=== PATIENT | male | born 1985 | race Hispanic/Latino ===

== ENCOUNTER 2018-08-13 17:47 | Inpatient (IN) | payer MEDICARE, MEDICAID ==
[2018-08-13] MEDS ORDERED: Dextrose 5 % And 0.9 % NaCl 1,000 ML IV SCH (20:15)
[2018-08-13] MEDS ORDERED: Acetaminophen 325 MG TAB PO PRN (21:08)
[2018-08-13] MEDS ORDERED: Sodium Chloride 0.9% 1,000 ML IV SCH (21:15)
[2018-08-13 21:29] VITALS: BMI 16.7
[2018-08-14] MEDS ORDERED: Acetaminophen 650 MG Suppository PR PRN (00:30)
[2018-08-14] MEDS ORDERED: Benzonatate 100 MG CAP PO PRN (00:30)
[2018-08-14] MEDS ORDERED: Ondansetron PF 4 MG/2 ML Vial IVP PRN ×2 (00:30)
[2018-08-14] MEDS ORDERED: Senokot S 8.6-50 MG TAB PO PRN (00:30)
[2018-08-14] MEDS ORDERED: Bisacodyl 10 MG SUPP PR PRN (00:30)
[2018-08-14] MEDS ORDERED: cloNIDine 0.1 MG TAB PO PRN (00:30)
[2018-08-14] MEDS ORDERED: cefTRIAXone\\ROCEPHIN 1 GM in Sodium Chloride 0.9% 100 ML IVPB SCH ×2 (00:30→15:00)
[2018-08-14] MEDS ORDERED: Calcium Carbonate 500 MG ChewTAB PO PRN (00:30)
[2018-08-14] MEDS ORDERED: Bisacodyl 5 MG TAB PO PRN (00:30)
[2018-08-14] MEDS ORDERED: Sodium Chloride 0.9% 1,000 ML IV SCH (00:30)
[2018-08-14] MEDS ORDERED: hydrALAZINE 20 MG/ML VIAL SLOW IVP PRN (00:30)
[2018-08-14] MEDS ORDERED: Nitroglycerin 0.4 MG TAB (25 Tab Bottle) SL PRN (00:30)
[2018-08-14] MEDS ORDERED: Sodium Chloride 0.65% Nasal 44 ML BOT EA NARE PRN (00:30)
[2018-08-14] MEDS ORDERED: Diabetic Tussin 200 MG/10 ML UDCUP PO PRN (00:30)
[2018-08-14] MEDS ORDERED: Melatonin 3 MG TAB PO PRN (01:15)
[2018-08-14] MEDS ORDERED: Polyethylene Glycol 3350 17 GM Packet PO PRN (02:08)
[2018-08-14] MEDS: Sodium Chloride 0.9% 1,000 ML IV SCH ×3 (02:35→21:51)
[2018-08-14] MEDS: Acetaminophen 325 MG TAB PO PRN ×2 (03:31→14:57)
[2018-08-14 03:32] LABS: Anion Gap 15 mmol/L (10-20); BUN (Urea Nitrogen) 10 mg/dL (8.9-20.6); Calc. Creatinine Clearance 86 mL/min (70-130); Carbon Dioxide 20 mmol/L (22-29); Chloride 111 mmol/L (98-107); Estimated GFR-MDRD Greater than 90; Glucose 138 mg/dL (70-105); Potassium 3.6 mmol/L (3.5-5.1); Sodium 142 mmol/L (136-145)
[2018-08-14 03:33] LABS: Band 22 % (5-11); Hemoglobin 13.6 g/dL (14.0-18.0); Lymphocytes 5 % (21-51); MDiff Complete? YES; Mean Corpuscular HGB CONC 34.7 g/dL (32.0-36.0); Mean Corpuscular Hemoglobin 31.3 pg (27.0-31.0); Mean Corpuscular Volume 90.3 fL (78.0-98.0); Metamyelocyte 2 % (0-0); Monocytes 3 % (0-10); Neutrophil 68 % (42-75); Platelet Count 129 thou/uL (130-400); Platelet Morphology Comment Appears Adequate; RBC Distribution Width 12.1 % (11.5-14.5); RBC Morphology Normal; Red Blood Cell (RBC) Count 4.34 mill/uL (4.70-6.10); White Blood Cell (WBC) Count 13.6 thou/uL (4.8-10.8)
--- NOTE | 2018-08-14 07:05 | HP ---
PRIMARY CARE PHYSICIAN: Ashlee Sharpe DO. CHIEF COMPLAINT: Fever, poor appetite, nausea, and vomiting. HISTORY OF PRESENTING ILLNESS: Mr. Whelan is a 32-year-old unfortunate male with history of cerebral palsy as well as seizure disorder, who presented to the outside emergency room with the above-mentioned complaints. History is mainly obtained by his sister present at bedside. The patient has advanced cerebral palsy and is nonverbal. According to the ER records and according to the sister, he has been having some constipation, nausea, and vomiting for the last couple of days. His care provider who is another sister who is not at the bedside at this time, noticed that he was having fever yesterday evening as well. He was also having poor appetite. The care provider gave him an enema yesterday morning, but his symptoms did not improve when she felt that he is not looking good and has been having some abdominal discomfort. She also noticed some chills. She brought him to the emergency room for these symptoms. Upon presentation to the ER in [place], he was afebrile with a temperature of 97.7, pulse of 88, saturating 97% on room air, and blood pressure 104/70. Later, his rectal temperature was checked and it was noticed to be 100.6. He was noticed to have urinary tract infection based on the urinalysis. The family reported that they recently had a urine check done, but they have not received the results back. He was treated with IV fluids and IV antibiotics and was transferred to our emergency room. In our emergency room, he was tachycardic with a heart rate of 133 and temperature of 99.1. He is now being admitted for further evaluation and care with a presumptive diagnosis of sepsis secondary to urinary tract infection. PAST MEDICAL HISTORY: 1. Cerebral palsy. 2. History of seizure disorder. 3. Chronic dysphagia, but the patient is able to tolerate oral feeds according to the family. 4. History of left flank mass. 5. History of testicular atrophy. 6. History of nephrolithiasis. PAST SURGICAL HISTORY: 1. RETAIL SALESPERSON shunt. 2. Right and left hip replacement. 3. RETAIL SALESPERSON shunt revision. PAST PSYCHIATRIC HISTORY: None. SOCIAL HISTORY: The patient is being cared for by his 3 sisters at home. No history of drug, alcohol, or tobacco abuse. FAMILY HISTORY: No known family history of any coronary artery disease or stroke. ALLERGIES: NO KNOWN MEDICATION ALLERGIES. HOME MEDICATIONS: As listed below. 1. Keppra 1000 mg p.o. b.i.d. 2. Benadryl p.r.n. 3. Depakote 250 mg p.o. b.i.d. 4. Zanaflex 4 mg p.o. b.i.d. 5. Sertraline 100 mg daily. 6. Magnesium citrate 200 mg p.o. b.i.d. 7. Nuedexta one capsule p.o. b.i.d. 8. Zonisamide 200 mg p.o. b.i.d. 9. Melatonin 10 mg p.o. at bedtime p.r.n. REVIEW OF SYSTEMS: It is unable to be obtained because the patient is nonverbal because of his cerebral palsy. Otherwise as per HPI, as told by his care provider at bedside. LABORATORY DATA: His CBC shows WBCs of 12.7, otherwise unremarkable. Serum chemistry showed bicarb of 19, creatinine 1.35 with a baseline of 0.8. Lactic acid elevated to 2.3. Liver enzymes unremarkable except for ALT slightly high at 110, AST of 47 with normal total bilirubin. Urinalysis shows some protein, leukocyte esterase, WBCs, RBCs, as well as bacteria. Chest x-ray as per my review shows no evidence to suggest infiltrate or effusions. PHYSICAL EXAMINATION: VITAL SIGNS: Most recent vital signs, temperature 100.1, heart rate anywhere from 108 to 123, respirations 20, saturating 99% on room air, blood pressure 112/77. GENERAL: No acute distress. He is awake and alert, but does not follow any commands, which is consistent with his history of cerebral palsy. HEENT: Mucous membrane is slightly dry. No oropharyngeal exudate or erythema. The exam is limited by noncooperation and contractures on the patient's part. Pupils are equal and reactive to light and accommodation. NECK: Supple without any lymphadenopathy, JVD, or bruit. CHEST: Clear to auscultation without any wheezing, rales, or rhonchi. HEART: Rate, rhythm; he is tachycardic with regular rhythm without any murmurs. ABDOMEN: Somewhat distended, but difficult to tell if he is tender to palpation or not. Bowel sounds are heard. No rebound or rigidity. EXTREMITIES: Shows extreme contractures in both upper extremities and poorly developed lower extremities. There is no edema. NEUROLOGICAL: The patient is nonverbal. He is awake and alert, and according to the family that is his baseline. He does not follow any commands for me. SKIN: Free of any rashes or bruises. No erythema or warmth. IMPRESSION AND PLAN: 1. Sepsis. This is secondary to urinary tract infection. The patient has fever, tachycardia, leukocytosis, and urinary tract infection. He will be treated with IV antibiotics. At this time until the cultures are back, we will treat him with broad-spectrum IV antibiotics to cover for the resistant organisms. We will use Rocephin as well as vancomycin. Pharmacy to dose and monitor vancomycin. Blood cultures and urine cultures have been obtained and we will follow the results. We will provide symptomatic and supportive care. The patient is somewhat tachycardic and if his tachycardia does not improve with IV fluid resuscitation, consider moving him to the telemetry bed. He is currently on the medical floor as accepted by the accepting physician. 2. Abdominal distention and constipation. We will obtain a KUB to rule out small-bowel obstruction. MiraLAX and bowel regimen have been started. P.r.n. antiemetics will be ordered. Currently, he appears comfortable and has no vomiting. 3. Acute renal insufficiency. This is likely secondary to poor p.o. intake and nausea and vomiting causing prerenal azotemia. He will be started on IV fluids and we will recheck labs in the morning. Avoid any nephrotoxic medications. 4. History of seizure disorder. We will restart his home medications of zonisamide, Keppra, as well as Depakote. Seizure precautions will be instituted. Aspiration precaution will be started as well. 5. Advanced cerebral palsy, spastic. Restart his home medications of Nuedexta and Zanaflex. 6. Deep venous thrombosis and gastrointestinal prophylaxis and p.r.n. medications. DISPOSITION: Mr. Whelan is currently being admitted to the hospital with urinary tract infection and sepsis. Estimated length of stay at this time is at least 2 to 3 midnights. Further management will depend upon his clinical course. Job ID: [id number]
[2018-08-14] MEDS: Enoxaparin Sodium 40 MG/0.4 ML SYRINGE SC SCH (09:25)
[2018-08-14] MEDS: tiZANidine HCl 4 MG TAB PO SCH ×2 (09:26→20:28)
[2018-08-14] MEDS: Magnesium Oxide 400 MG TAB PO SCH ×2 (09:26→20:28)
[2018-08-14] MEDS: Zonisamide 100 MG CAP PO SCH ×2 (09:26→20:28)
[2018-08-14] MEDS: Divalproex Sodium 250 MG (DR) TAB PO SCH ×2 (09:27→20:27)
[2018-08-14] MEDS: levETIRAcetam 500 MG TAB PO SCH ×2 (09:27→20:27)
[2018-08-14] MEDS: Famotidine 20 MG TAB PO SCH ×2 (09:28→20:27)
--- NOTE | 2018-08-14 09:56 | RAD ---
2 VIEW ABDOMEN SERIES: Date: 08/14/18 INDICATION: Small bowel obstruction, abdominal pain. FINDINGS: Partially imaged catheter tubing overlies the chest and abdomen. Lung bases, where visualized, are gr ossly clear. Bowel gas pattern is nonspecific, with a moderate degree of retained fecal material in t he colon. There is chronic osseous deformity of the pelvis, most notable at the left hip. The osseous structures are gracile. Presumed bilateral nephrolithiasis. IMPRESSION: 1. Nonspecific bowel gas pattern. 2. Partially visualized catheter tubing overlie the chest and abdomen. 3. Probable bilateral nephrolithiasis. 4. Chronic osseous deformities. POS: [facility]
[2018-08-14] MEDS: Dextromethorphan Hbr/Quinidine CAPSULE PO SCH ×2 (10:23→20:27)
[2018-08-14] MEDS ORDERED: Vancomycin HCl 750 MG in Sodium Chloride 0.9% 250 ML 250 ML IVPB SCH (12:00)
--- NOTE | 2018-08-14 13:06 | CT ---
ABDOMEN AND PELVIC CT SCAN WITHOUT CONTRAST: HISTORY: Abdominal pain. History of urolithiasis COMPARISON: February 2016 CT exam FINDINGS: Nonspecific bibasilar consolidation which could relate to pneumonitis or atelectasis. Correlate clini devan Liver: Unremarkable. Gallbladder: Moderate distention Pancreas: Unremarkable Spleen: Unremarkable. Adrenal glands: Unremarkable. Kidneys: Bilateral nephrolithiasis. No hydronephrosis. There is mild distention as well as wall thick ening of the unenhanced left ureter. Bowel: Incomplete evaluation without enteric or IV contrast. There are catheters which traverse the a bdomen and pelvis Urinary Bladder: Wall thickening of the mildly distended urinary bladder Adenopathy: No adenopathy within the abdomen or pelvis. Free Air: No free air. Ascites: Scattered mild ascites is present. There is persistent density of the right inguinal canal which again may relate to an undescended test is. Correlate with physical exam. Osseous structures: Chronic osseous deformities most notable at the left hip where there is a chronic dislocation with prominent osseous irregularity of the left hip joint. IMPRESSION: 1. Bilateral nephrolithiasis. 2. Wall thickening of the urinary bladder and left ureter. Slight prominence of caliber of left uret er which may relate to reflux with ascending urinary tract infection. Correlate with laboratory values 3. Probable undescended right testis. Correlate with physical exam. 4. Bibasilar densities that may reflect pneumonitis in the correct clinical context. Continued imagi ng follow-up is recommended. Transcribed Date/Time: 08/14/2018 1:37 PM
[2018-08-14] MEDS: MEROPENEM 1 GM/50 ML 1 GM in Premix Bag 1 BAG IVPB SCH ×2 (13:46→21:50)
--- NOTE | 2018-08-14 14:33 | PDOC.PN ---
- Subjective Encounter Start Date: 08/14/18 Encounter Start Time: 09:15 Subjective: pt up in bed no complains - Objective Vital Signs & Weight: Vital Signs (12 hours) Temp Pulse Resp BP Pulse Ox 08/14/18 11:00 100.9 F H 98 16 99/71 93 L 08/14/18 09:02 100 08/14/18 07:17 98.7 F 128 H 20 114/79 100 08/14/18 06:36 98.5 F 105 H 18 08/14/18 04:00 100.3 F H 120 H 20 100/65 94 L 08/14/18 03:25 101.2 F H Weight Admit Weight 97 lb 11.2 oz Weight 97 lb 11.2 oz Result Diagrams: 08/14/18 02:52 08/14/18 02:52 Phys Exam - Physical Examination Neck: no nodes, no JVD, supple, full ROM Respiratory: no wheezing, no rales, no rhonchi, wheezing present, clear to auscultation bilateral Cardiovascular: RRR, no significant murmur, no rub, gallop, irregular Gastrointestinal: soft, non-tender, no distention, positive bowel sounds Dx/Plan (1) Sepsis Code(s): A41.9 - SEPSIS, UNSPECIFIED ORGANISM Status: Acute (2) UTI (urinary tract infection) Status: Acute (3) Bacteremia Code(s): R78.81 - BACTEREMIA Status: Acute - Plan will change abx, consult id -: continue iv fluids, will start pt on regular diet * . Review of Systems - Review of Systems Other: unable to obtain - Medications/Allergies Allergies/Adverse Reactions: Allergies Allergy/AdvReac Type Severity Reaction Status Date / Time No Known Allergies Allergy Unverified 08/13/18 20:14 Medications: Current Medications Acetaminophen (Tylenol) 650 mg PO Q4H PRN PRN Reason: Headache/Fever/Mild Pain (1-3) Last Admin: 08/14/18 03:31 Dose: 650 mg Acetaminophen (Tylenol) 650 mg [place] Q4H PRN PRN Reason: Headache/Fever/Mild Pain (1-3) Benzonatate (Tessalon) 100 mg PO Q6H PRN PRN Reason: Cough Bisacodyl (Dulcolax) 10 mg PO DAILYPRN PRN PRN Reason: Constipation Bisacodyl (Dulcolax) 10 mg [place] DAILYPRN PRN PRN Reason: Constipation Calcium Carbonate (Tums) 1,000 mg PO Q4H PRN PRN Reason: Heartburn or Indigestion Clonidine (Catapres) 0.1 mg PO Q4H PRN PRN Reason: SBP > 160____ Dextromethorphan/Quinidine (Nuedexta 20-10 Mg Capsule) 1 cap PO Q12HR [facility] Last Admin: 08/14/18 10:23 Dose: 1 cap Divalproex Sodium (Depakote) 250 mg PO BID [facility] Last Admin: 08/14/18 09:27 Dose: 250 mg Enoxaparin Sodium (Lovenox) 40 mg SC 0900 [facility] Last Admin: 08/14/18 09:25 Dose: 40 mg Famotidine (Pepcid) 20 mg PO BID [facility] Last Admin: 08/14/18 09:28 Dose: 20 mg Guaifenesin (Robitussin Sf) 200 mg PO Q4H PRN PRN Reason: Cough Hydralazine HCl (Apresoline) 10 mg SLOW IVP Q4H PRN PRN Reason: SBP > 180 and HR < 70 Sodium Chloride (Normal Saline 0.9%) 1,000 mls @ 100 mls/hr IV .Q10H [facility] Last Admin: 08/14/18 10:25 Dose: 1,000 mls Meropenem 1 gm/ Device 50 mls @ 100 mls/hr IVPB Q8HR [facility] Last Admin: 08/14/18 13:46 Dose: 50 mls Levetiracetam (Keppra) 1,000 mg PO BID [facility] Last Admin: 08/14/18 09:27 Dose: 1,000 mg Magnesium Oxide (Magnesium Oxide) 200 mg PO BID [facility] Last Admin: 08/14/18 09:26 Dose: 200 mg Melatonin (Melatonin) 9 mg PO HS PRN PRN Reason: Insomnia Nitroglycerin (Nitrostat) 0.4 mg SL Q5MIN PRN PRN Reason: Chest Pain Ondansetron HCl (Zofran) 4 mg IVP Q6H PRN PRN Reason: Nausea/Vomiting Polyethylene Glycol (Miralax) 17 gm PO DAILYPRN PRN PRN Reason: Constipation Senna/Docusate Sodium (Senokot S) 2 tab PO BID PRN PRN Reason: Constipation Sertraline HCl (Zoloft) 100 mg PO DAILY [facility] Last Admin: 08/14/18 09:25 Dose: 100 mg Sodium Chloride ([place] Nasal [place] 0.65%) 0 ml EA NARE QIDPRN PRN PRN Reason: Nasal Congestion Sodium Chloride (Flush - Normal Saline) 10 ml IVF Q12HR [facility] Last Admin: 08/14/18 09:28 Dose: 10 ml Sodium Chloride (Flush - Normal Saline) 10 ml IVF PRN PRN PRN Reason: Saline Flush Tizanidine HCl (Zanaflex) 4 mg PO BID [facility] Last Admin: 08/14/18 09:26 Dose: 4 mg Zonisamide (Zonisamide) 200 mg PO BID [facility] Last Admin: 08/14/18 09:26 Dose: 200 mg
[2018-08-14] MEDS ORDERED: Vancomycin HCl 1 GM in Premix Bag 1 BAG IVPB SCH (16:00)
[2018-08-14] MEDS ORDERED: Sodium Chloride 0.9% 500 ML IV SCH (16:30)
[2018-08-14] MEDS ORDERED: Nystatin Powder 15 GM BOT TOP PRN (16:40)
[2018-08-14] MEDS ORDERED: Diazepam 2.5 MG GEL PR PRN (18:00)
--- NOTE | 2018-08-14 21:46 | CON ---
DATE OF CONSULTATION: 08/14/2018 REASON FOR CONSULTATION: Bacteremia. HISTORY OF PRESENT ILLNESS: This is a 32-year-old who has a history of cerebral palsy and has 24 hour care in his home in [place] by caretakers. Reportedly a few days ago developed nausea, vomiting, and then developed fever today before admission with decreased oral intake. He was brought to the emergency room and initial findings included temperature 97.7, pulse 88, respirations 18. Subsequently, his rectal temperature was 100.6. His heart rate was 133. Initial white cell count 12.7, creatinine 1.35. Lactic acid 2.3. ALT was 110. Urinalysis with 21-50 wbc's. Initial imaging studies include an abdomen and pelvis CT with bilateral nephrolithiasis, wall thickening of the urinary bladder and left ureter. Possible reflux in the left side, some atelectasis in lung bases. Cultures revealed a Proteus species in one set of blood cultures. Urine culture from November with Proteus mirabilis, which had a very broad susceptibility profile. Currently, Mr. Whelan is awake. He is unable to communicate fully because of his cerebral palsy. He will grunt intermittently and after some effort is able to say some intelligible words. PAST MEDICAL HISTORY: Includes cerebral palsy and seizure disorder, some element of oropharyngeal dysfunction, but able to eat, nephrolithiasis previous UTIs. 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 SOCIAL HISTORY: Lives in [place] with family, cared for by sisters. FAMILY HISTORY: Noncontributory. ALLERGIES: NONE. CURRENT MEDICATIONS: 1. Tylenol. 2. Tessalon. 3. Dulcolax. 4. Tums. 5. Catapres. 6. Depakote. 7. Lovenox. 8. Pepcid. 9. Hydralazine. 10. Keppra. 11. Magnesium. 12. Melatonin. 13. Meropenem. 14. Nitrostat. 15. MiraLax. 16. Senokot. 17. Zoloft. 18. Zonisamide. OBJECTIVE: VITAL SIGNS: T-max 103.1, blood pressure 99/71, pulse 98, respirations 16. The patient is voiding in the diaper. GENERAL: His body size is reduced, because of his cerebral palsy. SKIN: Shows no areas of skin breakdown. The patient has a peripheral IV access. NECK: No lymphadenopathy. HEENT: His ocular movements are conjugate. Pupils are equal. Oral cavity is not remarkable. No jugular venous distention. LUNGS: Symmetric breath sounds with basilar crackles, particularly on the right side. CARDIAC: S1-S2 regular rate. ABDOMEN: Soft, not distended. EXTREMITIES: No joint inflammatory activity noted. Pulses 1+ in dorsalis pedis. He does not follow commands. He does not move spontaneously his extremities. NEUROLOGIC: He is awake, but unable to interact with the examiner in a meaningful fashion due to his cognitive issues. LABORATORY DATA: White cell count 13.6, hemoglobin 13.6, platelets 129. Sodium 142, creatinine 0.77, glucose 138. Urinalysis with 21 to 50 wbc's. Microbiology with the findings noted above. Chest x-ray showed no acute intrathoracic findings. ASSESSMENT: 1. Cerebral palsy. 2. History of urinary tract infections. 3. Nausea, vomiting, fever. 4. Moderate leukocytosis with abnormal urinalysis and the findings in the CT scan suggestive of pyelonephritis. DISCUSSION: The patient will be continued on meropenem until we have the final identification of the organism susceptibilities and then transition to definitive therapy, probably with IV Rocephin. Eventual transition to oral quinolone or a third generation cephalosporin once there is further clinical improvement. The lung findings are probably due to capillary leak associated with volume repletion and the bacteremia. An intraabdominal inflammatory process was not demonstrated by the CT scan. Consider checking postvoid residual to rule out urinary retention, if not done yet. Job ID: [id number]
[2018-08-14] MEDS: Ibuprofen 600 MG TAB PO PRN (21:48)
[2018-08-15] MEDS: Acetaminophen 325 MG TAB PO PRN ×2 (00:19→14:50)
[2018-08-15] MEDS: MEROPENEM 1 GM/50 ML 1 GM in Premix Bag 1 BAG IVPB SCH ×3 (05:23→21:02)
[2018-08-15] MEDS: Sodium Chloride 0.9% 1,000 ML IV SCH ×2 (08:40→18:02)
[2018-08-15] MEDS: Zonisamide 100 MG CAP PO SCH ×2 (08:43→20:51)
[2018-08-15] MEDS: levETIRAcetam 500 MG TAB PO SCH ×2 (08:43→20:50)
[2018-08-15] MEDS: Famotidine 20 MG TAB PO SCH ×2 (08:44→20:50)
[2018-08-15] MEDS: Magnesium Oxide 400 MG TAB PO SCH ×2 (08:44→20:51)
[2018-08-15] MEDS: tiZANidine HCl 4 MG TAB PO SCH ×2 (08:44→20:51)
[2018-08-15] MEDS: Divalproex Sodium 250 MG (DR) TAB PO SCH ×2 (08:44→20:50)
[2018-08-15] MEDS: Enoxaparin Sodium 40 MG/0.4 ML SYRINGE SC SCH (08:46)
[2018-08-15] MEDS: Dextromethorphan Hbr/Quinidine CAPSULE PO SCH ×2 (09:49→20:50)
--- NOTE | 2018-08-15 15:04 | PDOC.PN ---
- Subjective Encounter Start Date: 08/15/18 Encounter Start Time: 15:02 Subjective: care discussed w sister at bedside & another sister over phone -: they report improvement.regular BM now.pt eating & urinating well -: Pt unable to talk d/t advanced CP - Objective MAR Reviewed: Yes Vital Signs & Weight: Vital Signs (12 hours) Temp Pulse Resp BP BP Pulse Ox 08/15/18 14:43 100.3 F H 08/15/18 11:20 98.2 F 90 18 99/60 93 L 08/15/18 08:25 100 08/15/18 08:18 97.6 F 77 16 110/75 92 L 08/15/18 05:36 90/58 L 08/15/18 04:59 98 F 79 18 97 Weight Admit Weight 97 lb 11.2 oz Weight 97 lb 11.2 oz I&O: 08/14/18 08/15/18 08/16/18 06:59 06:59 06:59 Intake Total 3390 Balance 3390 Result Diagrams: 08/14/18 02:52 08/14/18 02:52 Additional Labs: Microbiology 07/30/18 13:01 Urine velásquez catheter Urine Culture - Final NO GROWTH AT 36 HOURS 08/14/18 02:52 Venous blood - Right Hand Blood Culture - Preliminary Specimen has been received and culture in progress. No Growth to date. 08/14/18 02:52 Venous blood - Left Arm Blood Culture - Preliminary Specimen has been received and culture in progress. No Growth to date. 08/13/18 14:55 Venous blood - Right Hand Blood Culture - Preliminary Proteus species 08/13/18 13:10 Venous blood - Right Arm Blood Culture - Preliminary Gram Positive Cocci Phys Exam - Physical Examination Constitutional: NAD HEENT: PERRLA, moist MMs, sclera anicteric, oral pharynx no lesions Neck: no nodes, no JVD, supple, full ROM Respiratory: no wheezing, no rales, no rhonchi, clear to auscultation bilateral Cardiovascular: RRR, no significant murmur Gastrointestinal: soft, non-tender, no distention, positive bowel sounds Musculoskeletal: no edema, pulses present Neurological: non-focal, normal sensation, moves all 4 limbs Psychiatric: normal affect, A&O x 3 Skin: no rash Dx/Plan (1) Sepsis Code(s): A41.9 - SEPSIS, UNSPECIFIED ORGANISM Status: Acute Comment: D/T UTI.improving. on Empiric IV ABx. ID also following. CT did not show any hydronephrosis (2) UTI (urinary tract infection) Status: Acute (3) Bacteremia Code(s): R78.81 - BACTEREMIA Status: Acute Comment: Proteus 1/2 Blood Cx. on IV ABx. follow final Cx results (4) Cerebral palsy Code(s): G80.9 - CEREBRAL PALSY, UNSPECIFIED Status: Chronic (5) Nephrolithiasis Status: Chronic Comment: Non obstructing.Stable - Plan plan discussed w/ family, continue antibiotics, PT/OT, respiratory therapy, incentive spirometry, DVT proph w/lovenox, DVT proph w/SCDs clinically better. cont IV ABx, IVF and supportive care -: follow Final Cx results -: HD stable. -: AM labs -: cont home meds as started * . Review of Systems - Review of Systems Other: unable to obtain due to advanced CP - Medications/Allergies Allergies/Adverse Reactions: Allergies Allergy/AdvReac Type Severity Reaction Status Date / Time No Known Allergies Allergy Unverified 08/13/18 20:14 Medications: Current Medications Acetaminophen (Tylenol) 650 mg PO Q4H PRN PRN Reason: Headache/Fever/Mild Pain (1-3) Last Admin: 08/15/18 14:50 Dose: 650 mg Acetaminophen (Tylenol) 650 mg [place] Q4H PRN PRN Reason: Headache/Fever/Mild Pain (1-3) Benzonatate (Tessalon) 100 mg PO Q6H PRN PRN Reason: Cough Bisacodyl (Dulcolax) 10 mg PO DAILYPRN PRN PRN Reason: Constipation Bisacodyl (Dulcolax) 10 mg [place] DAILYPRN PRN PRN Reason: Constipation Calcium Carbonate (Tums) 1,000 mg PO Q4H PRN PRN Reason: Heartburn or Indigestion Clonidine (Catapres) 0.1 mg PO Q4H PRN PRN Reason: SBP > 160____ Dextromethorphan/Quinidine (Nuedexta 20-10 Mg Capsule) 1 cap PO Q12HR [facility] Last Admin: 08/15/18 09:49 Dose: 1 cap Diazepam (Diastat Pediatric) 12.5 mg VT ONE PRN PRN Reason: Seizures Stop: 08/21/18 18:01 Divalproex Sodium (Depakote) 250 mg PO BID [facility] Last Admin: 08/15/18 08:44 Dose: 250 mg Enoxaparin Sodium (Lovenox) 40 mg SC 0900 [facility] Last Admin: 08/15/18 08:46 Dose: 40 mg Famotidine (Pepcid) 20 mg PO BID [facility] Last Admin: 08/15/18 08:44 Dose: 20 mg Guaifenesin (Robitussin Sf) 200 mg PO Q4H PRN PRN Reason: Cough Hydralazine HCl (Apresoline) 10 mg SLOW IVP Q4H PRN PRN Reason: SBP > 180 and HR < 70 Sodium Chloride (Normal Saline 0.9%) 1,000 mls @ 100 mls/hr IV .Q10H [facility] Last Admin: 08/15/18 08:40 Dose: 1,000 mls Meropenem 1 gm/ Device 50 mls @ 100 mls/hr IVPB Q8HR [facility] Last Admin: 08/15/18 13:16 Dose: 50 mls Ibuprofen (Motrin) 600 mg PO Q6H PRN PRN Reason: Moderate Pain (4-6) Stop: 08/15/18 16:47 Last Admin: 08/14/18 21:48 Dose: 600 mg Levetiracetam (Keppra) 1,000 mg PO BID [facility] Last Admin: 08/15/18 08:43 Dose: 1,000 mg Magnesium Oxide (Magnesium Oxide) 200 mg PO BID [facility] Last Admin: 08/15/18 08:44 Dose: 200 mg Melatonin (Melatonin) 9 mg PO HS PRN PRN Reason: Insomnia Nitroglycerin (Nitrostat) 0.4 mg SL Q5MIN PRN PRN Reason: Chest Pain Nystatin (Mycostatin Powder) 0 gm TOP BID PRN PRN Reason: Topical Irritations Last Admin: 08/15/18 08:45 Dose: 1 applic Ondansetron HCl (Zofran) 4 mg IVP Q6H PRN PRN Reason: Nausea/Vomiting Polyethylene Glycol (Miralax) 17 gm PO DAILYPRN PRN PRN Reason: Constipation Senna/Docusate Sodium (Senokot S) 2 tab PO BID PRN PRN Reason: Constipation Sertraline HCl (Zoloft) 100 mg PO DAILY [facility] Last Admin: 08/15/18 08:45 Dose: 100 mg Sodium Chloride ([place] Nasal [place] 0.65%) 0 ml EA NARE QIDPRN PRN PRN Reason: Nasal Congestion Sodium Chloride (Flush - Normal Saline) 10 ml IVF Q12HR [facility] Last Admin: 08/15/18 08:48 Dose: Not Given Sodium Chloride (Flush - Normal Saline) 10 ml IVF PRN PRN PRN Reason: Saline Flush Tizanidine HCl (Zanaflex) 4 mg PO BID [facility] Last Admin: 08/15/18 08:44 Dose: 4 mg Zonisamide (Zonisamide) 200 mg PO BID [facility] Last Admin: 08/15/18 08:43 Dose: 200 mg
[2018-08-15] MEDS ORDERED: Polyethylene Glycol 3350 17 GM Packet PO PRN (16:24)
[2018-08-15] MEDS: Ibuprofen 600 MG TAB PO PRN (16:24)
[2018-08-16] MEDS: Acetaminophen 325 MG TAB PO PRN ×3 (03:07→18:55)
[2018-08-16] MEDS: Sodium Chloride 0.9% 1,000 ML IV SCH ×2 (05:35→17:08)
[2018-08-16] MEDS: MEROPENEM 1 GM/50 ML 1 GM in Premix Bag 1 BAG IVPB SCH ×2 (05:37→13:41)
[2018-08-16] MEDS: Magnesium Oxide 400 MG TAB PO SCH ×2 (08:21→20:59)
[2018-08-16] MEDS: levETIRAcetam 500 MG TAB PO SCH ×2 (08:21→20:59)
[2018-08-16] MEDS: Famotidine 20 MG TAB PO SCH ×2 (08:21→20:58)
[2018-08-16] MEDS: Divalproex Sodium 250 MG (DR) TAB PO SCH ×2 (08:22→21:00)
[2018-08-16] MEDS: tiZANidine HCl 4 MG TAB PO SCH ×2 (08:23→21:00)
[2018-08-16] MEDS: Enoxaparin Sodium 40 MG/0.4 ML SYRINGE SC SCH (08:23)
[2018-08-16] MEDS: Zonisamide 100 MG CAP PO SCH ×2 (08:23→21:01)
[2018-08-16] MEDS: Dextromethorphan Hbr/Quinidine CAPSULE PO SCH ×2 (09:52→21:01)
[2018-08-16] MEDS: cefTRIAXone\\ROCEPHIN 2 GM in Sodium Chloride 0.9% 100 ML IVPB SCH (14:16)
--- NOTE | 2018-08-16 15:22 | PDOC.PN ---
- Subjective Encounter Start Date: 08/16/18 Encounter Start Time: 15:19 Subjective: feels better as per his brother as bedside -: pt unable to discuss d/t severe cerebral palsy - Objective MAR Reviewed: Yes Vital Signs & Weight: Vital Signs (12 hours) Temp Pulse Resp BP Pulse Ox 08/16/18 11:13 98.7 F 77 18 97/59 L 95 08/16/18 08:00 93 L 08/16/18 07:42 100.2 F H 103 H 18 115/71 93 L 08/16/18 04:00 99.9 F H 110 H 16 119/75 93 L Weight Admit Weight 97 lb 11.2 oz Weight 97 lb 11.2 oz I&O: 08/15/18 08/16/18 08/17/18 06:59 06:59 06:59 Intake Total 3390 1750 Balance 3390 1750 Result Diagrams: 08/14/18 02:52 08/14/18 02:52 Additional Labs: Microbiology 07/30/18 13:01 Urine velásquez catheter Urine Culture - Final NO GROWTH AT 36 HOURS 08/14/18 02:52 Venous blood - Right Hand Blood Culture - Preliminary Specimen has been received and culture in progress. No Growth to date. 08/14/18 02:52 Venous blood - Left Arm Blood Culture - Preliminary Specimen has been received and culture in progress. No Growth to date. 08/13/18 14:55 Venous blood - Right Hand Blood Culture - Preliminary Proteus mirabilis 08/13/18 13:38 Urine Straight Catheter Urine Culture - Preliminary NO GROWTH AT 24 HOURS 08/13/18 13:10 Venous blood - Right Arm Blood Culture - Preliminary Gram Positive Cocci Phys Exam - Physical Examination Constitutional: NAD HEENT: PERRLA, moist MMs, sclera anicteric, oral pharynx no lesions Neck: no nodes, no JVD, supple Respiratory: no wheezing, no rales, no rhonchi, clear to auscultation bilateral Cardiovascular: RRR, no significant murmur Gastrointestinal: soft, non-tender, no distention, positive bowel sounds Musculoskeletal: no edema, pulses present Neurological: non-focal, normal sensation, moves all 4 limbs Psychiatric: normal affect Skin: no rash Dx/Plan (1) Sepsis Code(s): A41.9 - SEPSIS, UNSPECIFIED ORGANISM Status: Acute Comment: D/T UTI.improving. on Empiric IV ABx. ID also following. CT did not show any hydronephrosis.follow final Cx results (2) UTI (urinary tract infection) Status: Acute (3) Bacteremia Code(s): R78.81 - BACTEREMIA Status: Acute Comment: Proteus 1/2 Blood Cx. on IV ABx. follow final Cx results (4) Cerebral palsy Code(s): G80.9 - CEREBRAL PALSY, UNSPECIFIED Status: Chronic (5) Nephrolithiasis Status: Chronic Comment: Non obstructing.Stable - Plan plan discussed w/ family, continue antibiotics, DVT proph w/SCDs clinically better. cont ABx -: ID for final ABx recs for DC -: am labs -: home meds as started * . Review of Systems - Review of Systems Other: unable to obtain due to advanced Cerebral palsy - Medications/Allergies Allergies/Adverse Reactions: Allergies Allergy/AdvReac Type Severity Reaction Status Date / Time No Known Allergies Allergy Unverified 08/13/18 20:14 Medications: Current Medications Acetaminophen (Tylenol) 650 mg PO Q4H PRN PRN Reason: Headache/Fever/Mild Pain (1-3) Last Admin: 08/16/18 08:21 Dose: 650 mg Acetaminophen (Tylenol) 650 mg LA Q4H PRN PRN Reason: Headache/Fever/Mild Pain (1-3) Benzonatate (Tessalon) 100 mg PO Q6H PRN PRN Reason: Cough Bisacodyl (Dulcolax) 10 mg PO DAILYPRN PRN PRN Reason: Constipation Bisacodyl (Dulcolax) 10 mg LA DAILYPRN PRN PRN Reason: Constipation Last Admin: 08/15/18 16:24 Dose: 10 mg Calcium Carbonate (Tums) 1,000 mg PO Q4H PRN PRN Reason: Heartburn or Indigestion Clonidine (Catapres) 0.1 mg PO Q4H PRN PRN Reason: SBP > 160____ Dextromethorphan/Quinidine (Nuedexta 20-10 Mg Capsule) 1 cap PO Q12HR NICK Last Admin: 08/16/18 09:52 Dose: 1 cap Diazepam (Diastat Pediatric) 12.5 mg LA ONE PRN PRN Reason: Seizures Stop: 08/21/18 18:01 Divalproex Sodium (Depakote) 250 mg PO BID [facility] Last Admin: 08/16/18 08:22 Dose: 250 mg Enoxaparin Sodium (Lovenox) 40 mg SC 0900 [facility] Last Admin: 08/16/18 08:23 Dose: 40 mg Famotidine (Pepcid) 20 mg PO BID [facility] Last Admin: 08/16/18 08:21 Dose: 20 mg Guaifenesin (Robitussin Sf) 200 mg PO Q4H PRN PRN Reason: Cough Hydralazine HCl (Apresoline) 10 mg SLOW IVP Q4H PRN PRN Reason: SBP > 180 and HR < 70 Sodium Chloride (Normal Saline 0.9%) 1,000 mls @ 100 mls/hr IV .Q10H [facility] Last Admin: 08/16/18 05:35 Dose: 1,000 mls Ceftriaxone Sodium 2 gm/ (Sodium Chloride) 100 mls @ 200 mls/hr IVPB Q24HR [facility] Last Admin: 08/16/18 14:16 Dose: 100 mls Levetiracetam (Keppra) 1,000 mg PO BID [facility] Last Admin: 08/16/18 08:21 Dose: 1,000 mg Magnesium Oxide (Magnesium Oxide) 200 mg PO BID [facility] Last Admin: 08/16/18 08:21 Dose: 200 mg Melatonin (Melatonin) 9 mg PO HS PRN PRN Reason: Insomnia Nitroglycerin (Nitrostat) 0.4 mg SL Q5MIN PRN PRN Reason: Chest Pain Nystatin (Mycostatin Powder) 0 gm TOP BID PRN PRN Reason: Topical Irritations Last Admin: 08/15/18 08:45 Dose: 1 applic Ondansetron HCl (Zofran) 4 mg IVP Q6H PRN PRN Reason: Nausea/Vomiting Polyethylene Glycol (Miralax) 17 gm PO DAILYPRN PRN PRN Reason: Constipation Senna/Docusate Sodium (Senokot S) 2 tab PO BID PRN PRN Reason: Constipation Sertraline HCl (Zoloft) 100 mg PO DAILY [facility] Last Admin: 08/16/18 08:23 Dose: 100 mg Sodium Chloride ([place] Nasal [place] 0.65%) 0 ml EA NARE QIDPRN PRN PRN Reason: Nasal Congestion Sodium Chloride (Flush - Normal Saline) 10 ml IVF Q12HR [facility] Last Admin: 08/16/18 09:53 Dose: Not Given Sodium Chloride (Flush - Normal Saline) 10 ml IVF PRN PRN PRN Reason: Saline Flush Tizanidine HCl (Zanaflex) 4 mg PO BID [facility] Last Admin: 08/16/18 08:23 Dose: 4 mg Zonisamide (Zonisamide) 200 mg PO BID [facility] Last Admin: 08/16/18 08:23 Dose: 200 mg
--- NOTE | 2018-08-16 16:23 | PRG ---
DATE OF SERVICE: 08/16/2018 SUBJECTIVE: Feeling better, has not had any more vomiting. No grunting noises. OBJECTIVE: GENERAL/VITAL SIGNS: T-max 100.2, 102.6 yesterday at 4:00 p.m. Pulse 77 and BP 197/60. He is not diaphoretic anymore. HEENT: Ocular movements are conjugate. LUNGS: Symmetric. Clear breath sounds. ABDOMEN: Not distended. NEUROLOGIC: Unchanged. LABORATORY DATA: White cell count has not been repeated. Microbiology with the Proteus mirabilis, which is coronel susceptible. ASSESSMENT AND DISCUSSION: Cerebral palsy, recurrent urinary tract infections, nausea, vomiting, fever, Proteus mirabilis bacteremia, leukocytosis with abnormal urinalysis and the CT scan findings suggestive of pyelonephritis and bladder cystitis. The patient will be switched to IV Rocephin and then eventual transition to oral for discharge planning. I believe his postvoid residuals are okay. The stones do not have any evidence of obstruction, they may be colonized by Proteus mirabilis and we may see a recurrence in the near future. Job ID: [id number]
[2018-08-17] MEDS: Acetaminophen 325 MG TAB PO PRN ×4 (00:31→20:25)
[2018-08-17] MEDS: Sodium Chloride 0.9% 1,000 ML IV SCH ×3 (00:33→20:24)
[2018-08-17 06:40] LABS: #Eosinphils 0.2 thou/uL (0.0-0.7); #Lymphocytes 1.9 thou/uL (1.20-3.40); #Monocytes 1.2 thou/uL (0.11-0.59); #Neutrophils 5.7 thou/uL (1.40-6.50); %Basophils 0.5 % (0.0-1.0); %Eosinophils 1.9 % (0.0-10.0); %Lymphocytes 21.6 % (21.0-51.0); %Monocytes 12.9 % (0.0-10.0); %Neutrophils 63.2 % (42.0-75.0); Hemoglobin 13.2 g/dL (14.0-18.0); Mean Corpuscular HGB CONC 33.9 g/dL (32.0-36.0); Mean Corpuscular Hemoglobin 30.4 pg (27.0-31.0); Mean Corpuscular Volume 89.7 fL (78.0-98.0); Mean Platelet Volume 7.6 fL (7.4-10.4); Platelet Count 188 thou/uL (130-400); RBC Distribution Width 12.1 % (11.5-14.5); Red Blood Cell (RBC) Count 4.34 mill/uL (4.70-6.10)
[2018-08-17 07:01] LABS: Anion Gap 13 mmol/L (10-20); BUN (Urea Nitrogen) 6 mg/dL (8.9-20.6); Calc. Creatinine Clearance 106 mL/min (70-130); Calcium 9.1 mg/dL (7.8-10.44); Carbon Dioxide 16 mmol/L (22-29); Chloride 113 mmol/L (98-107); Estimated GFR-MDRD Greater than 90; Glucose 93 mg/dL (70-105); Potassium 4.1 mmol/L (3.5-5.1); Sodium 138 mmol/L (136-145)
[2018-08-17] MEDS: Magnesium Oxide 400 MG TAB PO SCH ×2 (08:04→20:26)
[2018-08-17] MEDS: Famotidine 20 MG TAB PO SCH ×2 (08:04→20:26)
[2018-08-17] MEDS: Divalproex Sodium 250 MG (DR) TAB PO SCH ×2 (08:05→20:26)
[2018-08-17] MEDS: tiZANidine HCl 4 MG TAB PO SCH ×2 (08:05→20:26)
[2018-08-17] MEDS: levETIRAcetam 500 MG TAB PO SCH ×2 (08:05→20:26)
[2018-08-17] MEDS: Enoxaparin Sodium 40 MG/0.4 ML SYRINGE SC SCH (08:05)
[2018-08-17] MEDS: Dextromethorphan Hbr/Quinidine CAPSULE PO SCH ×2 (10:01→20:27)
[2018-08-17] MEDS: Zonisamide 100 MG CAP PO SCH ×2 (10:01→20:25)
[2018-08-17] MEDS ORDERED: Divalproex Sodium 125 mg Sprinkle Capsule PO SCH (11:00)
[2018-08-17] MEDS: cefTRIAXone\\ROCEPHIN 2 GM in Sodium Chloride 0.9% 100 ML IVPB SCH (13:59)
--- NOTE | 2018-08-17 14:04 | PDOC.PN ---
- Subjective Encounter Start Date: 08/17/18 Encounter Start Time: 14:02 Subjective: sister at bedside and reports improvement. eating well.more awake & NL BM - Objective MAR Reviewed: Yes Vital Signs & Weight: Vital Signs (12 hours) Temp Pulse Resp BP Pulse Ox 08/17/18 07:46 101.1 F H 107 H 20 133/79 97 08/17/18 05:09 98.6 F 82 18 110/71 96 Weight Admit Weight 97 lb 11.2 oz Weight 97 lb 11.2 oz I&O: 08/16/18 08/17/18 08/18/18 06:59 06:59 06:59 Intake Total 1750 1350 Balance 1750 1350 Result Diagrams: 08/17/18 06:04 08/17/18 06:04 Additional Labs: Microbiology 08/16/18 Unknown Stool C. difficile GDH Antigen & Toxins - Final 08/13/18 14:55 Venous blood - Right Hand Blood Culture - Final Proteus mirabilis 08/13/18 13:38 Urine Straight Catheter Urine Culture - Final NO GROWTH AT 48 HOURS 08/13/18 13:10 Venous blood - Right Arm Blood Culture - Final Presumptive Micrococcus sp. 07/30/18 13:01 Urine velásquez catheter Urine Culture - Final NO GROWTH AT 36 HOURS 08/14/18 02:52 Venous blood - Right Hand Blood Culture - Preliminary NO GROWTH AT 48 HOURS 08/14/18 02:52 Venous blood - Left Arm Blood Culture - Preliminary NO GROWTH AT 48 HOURS Phys Exam - Physical Examination Constitutional: NAD awake and says 1 sentence at a time .wants to go home HEENT: PERRLA, moist MMs, sclera anicteric, oral pharynx no lesions Neck: no nodes, no JVD, supple, full ROM Respiratory: no wheezing, no rales, no rhonchi, clear to auscultation bilateral Cardiovascular: RRR, no significant murmur Gastrointestinal: soft, non-tender, positive bowel sounds mild distension Musculoskeletal: no edema, pulses present Contracture sof arms and legs Neurological: non-focal, normal sensation, moves all 4 limbs Psychiatric: normal affect Deviation from normal: advanced Cerebral palsy Skin: no rash Dx/Plan (1) Sepsis Code(s): A41.9 - SEPSIS, UNSPECIFIED ORGANISM Status: Acute Comment: D/T UTI.improving. on Empiric IV ABx. ID also following. CT did not show any hydronephrosis.follow final Cx results (2) UTI (urinary tract infection) Status: Acute (3) Bacteremia Code(s): R78.81 - BACTEREMIA Status: Acute Comment: Proteus 1/2 Blood Cx. on IV ABx. follow final Cx results (4) Cerebral palsy Code(s): G80.9 - CEREBRAL PALSY, UNSPECIFIED Status: Chronic (5) Nephrolithiasis Status: Chronic Comment: Non obstructing.Stable - Plan DVT proph w/SCDs On and off fever.? etiology.clinically much better -: ABx changed to rocephin yesterday and Proteus is sensitive to it -: Defer to ID.no new sign/symptom to suggest worsening infection -: monitor -: am labs.CDiff negative * .
--- NOTE | 2018-08-17 17:10 | PRG ---
DATE OF SERVICE: 08/17/2018 SUBJECTIVE: Eating well. He is able to talk. No diarrhea. No vomiting. Still having intermittent low-grade temp elevation. OBJECTIVE: GENERAL: Appears in no distress. No diaphoresis. LUNGS: Clear. HEART: S1 and S2, regular rate. ABDOMEN: Soft. LABORATORY DATA: White cell count 9000, hemoglobin 13, platelets 188. Creatinine 0.62. C difficile is negative. ASSESSMENT AND DISCUSSION: Cerebral palsy and recurrent urinary tract infection with another one with pyelonephritis. No obstruction. The patient is on Rocephin. There is improvement in the white cell count. I predict that the temperature elevations will steadily subside over the ensuing days. No changes in management for now. Job ID: [id number]
[2018-08-18] MEDS: Sodium Chloride 0.9% 1,000 ML IV SCH ×2 (09:16→14:10)
[2018-08-18] MEDS: tiZANidine HCl 4 MG TAB PO SCH ×2 (09:19→20:10)
[2018-08-18] MEDS: Magnesium Oxide 400 MG TAB PO SCH ×2 (09:20→20:10)
[2018-08-18] MEDS: levETIRAcetam 500 MG TAB PO SCH ×2 (09:22→20:10)
[2018-08-18] MEDS: Famotidine 20 MG TAB PO SCH ×2 (09:22→20:10)
[2018-08-18] MEDS: Zonisamide 100 MG CAP PO SCH ×2 (09:23→20:11)
[2018-08-18] MEDS: Divalproex Sodium DR 500 MG TAB PO SCH (09:24)
[2018-08-18] MEDS: Dextromethorphan Hbr/Quinidine CAPSULE PO SCH ×2 (09:24→20:09)
[2018-08-18] MEDS: Enoxaparin Sodium 40 MG/0.4 ML SYRINGE SC SCH (09:25)
[2018-08-18] MEDS: cefTRIAXone\\ROCEPHIN 2 GM in Sodium Chloride 0.9% 100 ML IVPB SCH (14:09)
--- NOTE | 2018-08-18 16:04 | PRG ---
DATE OF SERVICE: 08/18/2018 SUBJECTIVE: Restful or does not have any major problems. Eating well. No vomiting. No evidence of pain. OBJECTIVE: VITAL SIGNS: T-max of 100 overnight. Now, he has been afebrile today thus far. HEENT: Ocular movements conjugate. LUNGS: Clear. HEART: S1 and S2. Regular rate. ABDOMEN: Soft and not distended. LABORATORY DATA: Microbiology with the pansensitive Proteus mirabilis. ASSESSMENT AND DISCUSSION: Cerebral palsy and urinary tract infection with pyelonephritis. It looks like he is starting to defervesce, and by tomorrow, if he is still afebrile, then transition to oral quinolone for discharge planning. Treat for about 2 to 3 weeks. Job ID: [id number]
[2018-08-18] MEDS: Acetaminophen 325 MG TAB PO PRN (16:17)
--- NOTE | 2018-08-18 18:13 | PDOC.PN ---
- Subjective Encounter Start Date: 08/18/18 Encounter Start Time: 18:00 Subjective: f/u for Proteus bacteremia/UTI on Rocephin. Fever curve decreasing -: Family reports pt doing better and interactive. Tolerating po intake. - Objective MAR Reviewed: Yes Vital Signs & Weight: Vital Signs (12 hours) Temp Pulse Resp BP Pulse Ox 08/18/18 15:50 99.1 F 86 19 132/80 97 08/18/18 10:59 98.3 F 98 19 108/71 96 08/18/18 08:00 96 08/18/18 06:57 97.9 F 91 18 114/75 95 Weight Admit Weight 97 lb 11.2 oz Weight 97 lb 11.2 oz I&O: 08/17/18 08/18/18 08/19/18 06:59 06:59 06:59 Intake Total 1350 Balance 1350 Result Diagrams: 08/17/18 06:04 08/17/18 06:04 Additional Labs: Microbiology 08/16/18 Unknown Stool C. difficile GDH Antigen & Toxins - Final 08/13/18 14:55 Venous blood - Right Hand Blood Culture - Final Proteus mirabilis 08/13/18 13:38 Urine Straight Catheter Urine Culture - Final NO GROWTH AT 48 HOURS 08/13/18 13:10 Venous blood - Right Arm Blood Culture - Final Presumptive Micrococcus sp. 08/14/18 02:52 Venous blood - Right Hand Blood Culture - Preliminary NO GROWTH AT 48 HOURS 08/14/18 02:52 Venous blood - Left Arm Blood Culture - Preliminary NO GROWTH AT 48 HOURS Laboratory Tests 08/14/18 02:52 WBC 13.6 H Plt Count 129 L Band Neuts % (Manual) 22 H Phys Exam - Physical Examination Constitutional: NAD smiling, alert, responsive HEENT: PERRLA, sclera anicteric, oral pharynx no lesions Neck: no nodes, no JVD, supple, full ROM Respiratory: no wheezing, no rales, no rhonchi, clear to auscultation bilateral S1, S2 Cardiovascular: RRR, no significant murmur, no rub, gallop Gastrointestinal: soft, non-tender, no distention, positive bowel sounds Musculoskeletal: no edema, pulses present contractures of U/LE's Neurological: moves all 4 limbs Skin: normal turgor, cap refill <2 seconds Dx/Plan (1) Sepsis Code(s): A41.9 - SEPSIS, UNSPECIFIED ORGANISM Status: Acute Comment: D/T UTI.improving. on Empiric IV ABx. ID also following. CT did not show any hydronephrosis. Proteus spp noted on Ucx and Blood cx (2) Bacteremia Code(s): R78.81 - BACTEREMIA Status: Acute Comment: Proteus 1/2 Blood Cx. on IV ABx. Transition to Levaquin 500mg po daily (3) UTI (urinary tract infection) Status: Acute Comment: See above (4) Cerebral palsy Code(s): G80.9 - CEREBRAL PALSY, UNSPECIFIED Status: Chronic Comment: Supportive mgmt, family assisting with bedside care - Plan plan discussed w/ family, continue antibiotics, psychologist social, DVT proph w/ SCDs Stable currently -: Start Levaquin 500mg po daily -: D/C Rocephin -: Continue Nystatin topically -: Likely home in 24-48h * .
[2018-08-18] MEDS: Divalproex Sodium 250 MG (DR) TAB PO SCH (20:09)
[2018-08-19] MEDS: Sodium Chloride 0.9% 1,000 ML IV SCH ×2 (02:49→19:13)
[2018-08-19] MEDS: levETIRAcetam 500 MG TAB PO SCH ×2 (08:53→20:46)
[2018-08-19] MEDS: Magnesium Oxide 400 MG TAB PO SCH ×2 (08:53→20:47)
[2018-08-19] MEDS: tiZANidine HCl 4 MG TAB PO SCH ×2 (08:54→20:47)
[2018-08-19] MEDS: Famotidine 20 MG TAB PO SCH ×2 (08:55→20:46)
[2018-08-19] MEDS: Enoxaparin Sodium 40 MG/0.4 ML SYRINGE SC SCH (08:55)
[2018-08-19] MEDS: Divalproex Sodium DR 500 MG TAB PO SCH (09:02)
[2018-08-19] MEDS: Zonisamide 100 MG CAP PO SCH ×2 (09:02→20:47)
[2018-08-19] MEDS: Dextromethorphan Hbr/Quinidine CAPSULE PO SCH ×2 (10:40→20:46)
--- NOTE | 2018-08-19 15:59 | PDOC.PN ---
- Subjective Encounter Start Date: 08/19/18 Encounter Start Time: 16:00 Subjective: f/u Proteus spp with bacteremia/UTI on Levaquin. Feels ok per -: family and no recorded fevers. - Objective MAR Reviewed: Yes Vital Signs & Weight: Vital Signs (12 hours) Temp Pulse Resp BP BP Pulse Ox 08/19/18 12:00 97.8 F 91 18 131/89 97 08/19/18 09:00 98 08/19/18 08:00 98.6 F 65 18 135/79 98 08/19/18 05:12 97.8 F 74 20 139/86 94 L Weight Admit Weight 97 lb 11.2 oz Weight 97 lb 11.2 oz I&O: 08/18/18 08/19/18 08/20/18 06:59 06:59 06:59 Intake Total 750 Balance 750 Result Diagrams: 08/17/18 06:04 08/17/18 06:04 Additional Labs: Microbiology 08/16/18 Unknown Stool C. difficile GDH Antigen & Toxins - Final 08/13/18 14:55 Venous blood - Right Hand Blood Culture - Final Proteus mirabilis 08/13/18 13:38 Urine Straight Catheter Urine Culture - Final NO GROWTH AT 48 HOURS 08/13/18 13:10 Venous blood - Right Arm Blood Culture - Final Presumptive Micrococcus sp. 08/14/18 02:52 Venous blood - Right Hand Blood Culture - Preliminary NO GROWTH AT 48 HOURS 08/14/18 02:52 Venous blood - Left Arm Blood Culture - Preliminary NO GROWTH AT 48 HOURS Laboratory Tests 08/14/18 02:52 WBC 13.6 H Plt Count 129 L Band Neuts % (Manual) 22 H Phys Exam - Physical Examination Constitutional: NAD HEENT: PERRLA, sclera anicteric, oral pharynx no lesions Neck: no nodes, no JVD, supple, full ROM Respiratory: no wheezing, no rales, no rhonchi, clear to auscultation bilateral S1, S2 Cardiovascular: RRR, no significant murmur, no rub, gallop Gastrointestinal: soft, non-tender, no distention, positive bowel sounds Musculoskeletal: no edema, pulses present contractures in U/LE's Neurological: moves all 4 limbs Skin: normal turgor, cap refill <2 seconds Dx/Plan (1) Sepsis Code(s): A41.9 - SEPSIS, UNSPECIFIED ORGANISM Status: Acute Comment: D/T UTI.improving. Levaquin 500mg daily, ID also following. CT did not show any hydronephrosis. Proteus spp noted on Ucx and Blood cx (2) Bacteremia Code(s): R78.81 - BACTEREMIA Status: Acute Comment: Proteus 1/2 Blood Cx. Transition to Levaquin 500mg po daily (3) UTI (urinary tract infection) Status: Acute Comment: See above (4) Cerebral palsy Code(s): G80.9 - CEREBRAL PALSY, UNSPECIFIED Status: Chronic Comment: Supportive mgmt, family assisting with bedside care - Plan plan discussed w/ family, continue antibiotics, drug abuse social worker, DVT proph w/ SCDs Stable currently -: Continue Levaquin 500mg daily -: Continue Nystatin topically -: Continue Keppra/Depakote -: Saline lock IVF * Likely home in am
[2018-08-19 20:33] VITALS: TEMP 98.6
[2018-08-19] MEDS: Divalproex Sodium 250 MG (DR) TAB PO SCH (20:46)
[2018-08-20] MEDS: levETIRAcetam 500 MG TAB PO SCH (08:59)
[2018-08-20] MEDS: tiZANidine HCl 4 MG TAB PO SCH (08:59)
[2018-08-20] MEDS: Famotidine 20 MG TAB PO SCH (09:00)
[2018-08-20] MEDS: Enoxaparin Sodium 40 MG/0.4 ML SYRINGE SC SCH (09:00)
[2018-08-20] MEDS: Magnesium Oxide 400 MG TAB PO SCH (09:00)
[2018-08-20] MEDS: Zonisamide 100 MG CAP PO SCH (09:55)
[2018-08-20] MEDS: Divalproex Sodium DR 500 MG TAB PO SCH (09:56)
[2018-08-20] MEDS: Dextromethorphan Hbr/Quinidine CAPSULE PO SCH (09:56)
[2018-08-20 11:34] VITALS: BP 121/83
--- NOTE | 2018-08-21 02:43 | DIS ---
DATE OF ADMISSION: 08/13/2018 DATE OF DISCHARGE: 08/20/2018 DISCHARGE DIAGNOSES: 1. Sepsis, secondary to #2, resolved. 2. Bacteremia with Proteus species from urinary tract source, improved. 3. Urinary tract infection with Proteus species. 4. Cerebral palsy. CONSULTATIONS: Dr. Daniel Veras with Infectious Disease Service. PERTINENT LAB AND X-RAY FINDINGS: CBC showed a white blood cell count ranging between 9.0 to 13.6. Blood cultures dated 08/13/2018, positive for Proteus mirabilis, 1/2 with second culture showing presumptive micrococcus species. Urine culture dated 08/13/2018, showed no growth at 48 hours. Repeat blood cultures dated 08/14/2018, showed no growth at 5 days. C. difficile antigen and toxin dated 08/16/2018, negative. CT of the abdomen and pelvis dated 08/14/2018, showed bilateral nephrolithiasis, wall thickening of the urinary bladder with increased prominence of caliber of the left ureter suggesting reflux. Abdominal x-rays dated 08/14/2018, showed nonspecific bowel gas pattern, bilateral nephrolithiasis. HOSPITAL COURSE: The patient was initially admitted after presenting with fever, decreased appetite with nausea and vomiting. The patient with significant history of cerebral palsy and chronic seizure disorder, presented with abdominal complaints. The patient underwent extensive evaluation including abdominal imaging to include CT modality. The patient was initially managed for sepsis suspected secondary to urinary tract source. The patient was placed on broad-spectrum IV antibiotic therapy to include Rocephin and vancomycin. Blood cultures did show Proteus and micrococcus species. At which point, Infectious Disease consultation was obtained. The patient was transitioned from Rocephin and vancomycin to meropenem and continued on meropenem as a primary antibiotic agent during the hospital course. The patient transitioned to Levaquin with recommendations to complete a two-week course of antibiotic therapy after discharge. The patient overall clinically stable with antibiotic therapy and IV fluid support. The patient's appetite did improve and return to baseline functional status per family report. I have examined the patient at the time of discharge and discussed followup instructions. Family verbalized understanding and agreement ready for discharge on 08/20/2018. DISCHARGE MEDICATIONS: 1. Levaquin 500 mg p.o. daily x14 days. 2. Diazepam 12.5 mg per rectum as needed for seizures. 3. Depakote 250 mg p.o. b.i.d. 4. Keppra 1000 mg p.o. b.i.d. 5. Magnesium citrate 200 mg p.o. b.i.d. 6. Melatonin 10 mg p.o. at bedtime p.r.n. 7. Sertraline 100 mg p.o. daily. 8. Zanaflex 4 mg p.o. b.i.d. 9. Zonisamide 200 mg p.o. b.i.d. 10. Nuedexta one capsule p.o. b.i.d. FOLLOWUP: The patient may follow up with his primary care provider, Dr. Ashlee Sharpe within 7 days of discharge. CONDITION ON DISCHARGE: Stable. ACTIVITY: Ad-irais. DIET: Regular. CODE STATUS: Full. DISPOSITION: To home, 08/20/2018. TIME SPENT: Total time preparing and coordinating discharge, 31 minutes. Job ID: [id number]
== END 2018-08-20 12:01 | disposition home or self-care (01) | DRG 871 ==
LOC: ERS 17:47 → T4-B 19:32
PROVIDERS: ADMIT Internal Medicine; ATTEND Internal Medicine
DX: A41.9 Sepsis, unspecified organism (principal); G80.0 Spastic quadriplegic cerebral palsy; N12 Tubulo-interstitial nephritis, not specified as acute or chronic; G40.909 Epilepsy, unspecified, not intractable, without status epilepticus; R13.10 Dysphagia, unspecified; K59.00 Constipation, unspecified; N20.0 Calculus of kidney; N30.90 Cystitis, unspecified without hematuria; B96.4 Proteus (mirabilis) (morganii) as the cause of diseases classified elsewhere; Z96.643 Presence of artificial hip joint, bilateral; Z79.899 Other long term (current) drug therapy
CPT/HCPCS: 36415; 74019; 74176; 80048; 85025; 87040; 87324; 87449; 99291; J0696; J1650; J2185; J3370; J3490; J7050

== ENCOUNTER 2018-11-12 16:07 | Outpatient (CLI) | payer MEDICARE, MEDICAID ==
[2018-11-12 17:37] LABS: Mean Corpuscular HGB CONC 33.6 g/dL (32.0-36.0); Mean Corpuscular Hemoglobin 30.1 pg (27.0-31.0); Mean Corpuscular Volume 89.3 fL (78.0-98.0); Mean Platelet Volume 7.8 fL (7.4-10.4); Platelet Count 180 thou/uL (130-400); Red Blood Cell (RBC) Count 4.99 mill/uL (4.70-6.10); White Blood Cell (WBC) Count 8.2 thou/uL (4.8-10.8)
[2018-11-12 17:43] LABS: INR-International Normal Ratio 1.1; PTT 30.8 SEC (22.9-36.1); Prothrombin Time 13.7 SEC (12.0-14.7)
[2018-11-12 17:58] LABS: Anion Gap 16 mmol/L (10-20); BUN (Urea Nitrogen) 14 mg/dL (8.9-20.6); Calc. Creatinine Clearance 0 mL/min (70-130); Calcium 10.3 mg/dL (7.8-10.44); Carbon Dioxide 23 mmol/L (22-29); Chloride 106 mmol/L (98-107); Estimated GFR-MDRD Greater than 90; Glucose 96 mg/dL (70-105); Potassium 4.4 mmol/L (3.5-5.1); Sodium 141 mmol/L (136-145)
== END 2018-11-12 16:08 | disposition home or self-care (01) ==
LOC: LABBT 16:07
PROVIDERS: ATTEND Urology
DX: Z01.812 Encounter for preprocedural laboratory examination (principal); N20.0 Calculus of kidney
CPT/HCPCS: 80048; 85027; 85610; 85730

== ENCOUNTER 2018-11-18 06:17 | Day surgery (SDC) | payer MEDICARE, MEDICAID ==
[2018-11-12 16:18] VITALS: BMI 17.3
[2018-11-18] MEDS ORDERED: levETIRAcetam In NaCl (Iso-Os) 1,000 MG in Premix Bag 1 BAG IVPB SCH (07:00)
[2018-11-18] MEDS ORDERED: Valproate Sodium 500 MG in Sodium Chloride 0.9% 100 ML IVPB SCH (07:00)
[2018-11-18] MEDS ORDERED: Piperacillin/Tazobactam 3.375 GM in Sodium Chloride 0.9% 100 ML IVPB SCH (07:00)
[2018-11-18] MEDS ORDERED: Sodium Chloride 0.9% 100 ML ONE (07:34)
[2018-11-18] MEDS ORDERED: Piperacillin/Tazobactam 3.375 GM VIAL ONE (07:34)
[2018-11-18] MEDS ORDERED: SUGAMMADEX SODIUM 500 MG/5 ML VIAL ONE (08:45)
[2018-11-18] MEDS ORDERED: Fentanyl 100 MCG/2 ML VIAL ONE (08:45)
[2018-11-18] MEDS ORDERED: Rocuronium Bromide 50 MG/5 ML VIAL ONE (08:45)
--- NOTE | 2018-11-18 08:46 | RAD ---
KUB: INDICATION: History of preop evaluation. IMPRESSION: There is ventriculoperitoneal catheter which is coiled within the upper abdomen. There is an additio nal catheter seen within the central abdomen that may reflect a surgical drain for peritoneal dialysi s catheter. The bowel gas pattern is unobstructed. There is a moderate to prominent amount of retai joshua stool within the colon. Hip dysplasia of the left hip is stable. Enthesopathic changes of the p pawan are stable. POS: BH
[2018-11-18] MEDS ORDERED: Iothalamate Meglumine 60% 50 ML VIAL FS ONE (09:32)
--- NOTE | 2018-11-18 10:00 | RAD ---
RETROGRADE PYELOGRAM: Date: 11/18/2018 HISTORY: Ureteroscopy with stent placement. FINDINGS: Two images from right retrograde pyelogram provided. 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 Catheter tubing overlies the right lower quadrant and left upper quadrant. The first image demonstrates contrast media partially opacifying a nondilated right renal collecting system. The calcification within the right upper quadrant noted on 11/18/2018 is not visualized suggesting stone extraction. Second image demonstrates a double-J ureteral stent on the right. IMPRESSION: Retrograde pyelogram as detailed above. Transcribed Date/Time: 11/18/2018 11:01 AM
--- NOTE | 2018-11-18 11:37 | OP ---
DATE OF PROCEDURE: 11/18/2018 PREOPERATIVE DIAGNOSES: 1. A 32-year-old male with history of cerebral palsy, lower extremity contracture, presents with history of recurrent urinary tract infection. 2. Bilateral renal lithiasis: Right 1 cm x 8 mm renal pelvic stone, Hounsfield unit 1100, right lower pole punctate renal lithiasis. 3. Left multiple renal calculi: Left upper pole 5 mm, mid pole 3 to 4 mm, left lower pole 8 mm. 4. History of right undescended testes since . POSTOPERATIVE DIAGNOSES: 1. A 32-year-old male with history of cerebral palsy, lower extremity contracture, presents with history of recurrent urinary tract infection. 2. Bilateral renal lithiasis: Right 1 cm x 8 mm renal pelvic stone, Hounsfield unit 1100, right lower pole punctate renal lithiasis. 3. Left multiple renal calculi: Left upper pole 5 mm, mid pole 3 to 4 mm, left lower pole 8 mm. 4. History of right undescended testes since . PROCEDURES PERFORMED: Cystoscopy, right retrograde pyelogram, 6 x 22 double-J ureteral stent placement, ureteral dilatation, diagnostic ureteroscopy. ANESTHESIA: General. COMPLICATIONS: None apparent. DISPOSITION: To recovery room in stable condition. INTRAOPERATIVE FINDINGS: 1. Anterior and posterior urethra within normal limits. 2. UOs in normal orthotopic position. 3. Small caliber right ureter. 4. Right renal pelvic stone, radiopaque. 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 They presented for evaluation of recurrent UTI and history of kidney stone. The patient has a history of chronic incontinence, however, is not in retention. His CT demonstrated stone dimensions as above and desired to proceed with elective treatment. The patient and family were extensively counseled that his body habitus does pose a significant surgical challenge as he has extreme contracture of his lower extremities and pelvis. They have been fully informed that I may not be able to access the collecting system given his body habitus and is fully aware of the difficulties and challenges. They desires me to proceed and gave ureteroscopy and laser lithotripsy a try. Given the large stone burden and density and he will most likely require stent, we discussed options of ESWL versus ureteroscopy. With risks and benefits of each modality and stone-free rate, they desired to proceed with ureteroscopy and laser lithotripsy for more efficacious treatment. DESCRIPTION OF PROCEDURE: After an informed consent was signed, the patient was taken to the operating room, placed in supine position. General anesthesia was administered. The patient was placed in dorsal lithotomy position and this was quite challenging and we did place his legs up in stirrups and we gently abducted his hips. However, there was very little space between his legs. However, we were able to drape and perform a cystoscopy. A 21-Cambodian cystoscope was passed, which demonstrated no evidence of anterior-posterior stricture. There was coapting lateral lobes with no significant outlet obstruction. The bladder was entered, which demonstrated some sediments of debris, however, no bladder stones. UOs are in normal anatomical location. We did pass a 0.35 Sensor wire to the right upper pole. We then subsequently dilated his ureter with a balloon dilation using 12- Cambodian 4 cm [employer]. We did dilate his ureter in 3 segments from the intramural ureter up to the mid ureter. The retrograde pyelogram did demonstrate the ureter was small in caliber. With the ureter dilated, as the ureter itself appeared to be small in caliber, I did not engage passing a navigator. We did pass a 0.35 Super Stiff wire through the 10-Cambodian dual-lumen access sheath after dilating his ureter. Using the Super Stiff wire, we gently attempted to pass our flexible ureteroscope. There was a hang up at the left of L4 and ureteral level with the flexible ureteroscope. I was able to visualize the lumen However, it was a small caliber ureter. Ureteroscope was unable to be passed beyond this level. Therefore, decision was made not to engage the ureteroscope at this time any further. I did restage the ureter distally, which demonstrated no evidence of ureteral mucosal perforation of concern. The scope was removed and we passed a 6 x 22 double-J ureteral stent into the right upper pole collecting system without significant issues. The stent was somewhat redundant in the bladder, therefore next time I will pass a 6 x 20 stent instead. The stent was in good position in the upper pole and adequate redundancy in the bladder and bladder was completely emptied. He will be discharged with Bactrim DS one p.o. b.i.d. for 5 days and will return to clinic next Friday to schedule ureteroscopy and laser lithotripsy at a later date. I would prefer to leave his indwelling ureteral stent minimum 1 to 2 weeks to allow passive dilatation of his small caliber ureter and hopes that we can have access to the upper pole collecting system to treat his large renal pelvic stone. Job ID: [id number] MINA
== END 2018-11-18 11:39 | disposition home or self-care (01) ==
LOC: SDC 06:17
PROVIDERS: ATTEND Urology
PROC: 0T768DZ Dilation of Right Ureter with Intraluminal Device, Via Natural or Artificial Opening Endoscopic (ICD-10-PCS; principal; 2018-11-18)
PROC: 0WHR8YZ Insertion of Other Device into Genitourinary Tract, Via Natural or Artificial Opening Endoscopic (ICD-10-PCS; 2018-11-18)
PROC: 0T968ZZ Drainage of Right Ureter, Via Natural or Artificial Opening Endoscopic (ICD-10-PCS; 2018-11-18)
PROC: 0T768DZ Dilation of Right Ureter with Intraluminal Device, Via Natural or Artificial Opening Endoscopic (ICD-10-PCS; 2018-11-18)
DX: N20.0 Calculus of kidney (principal); Z79.899 Other long term (current) drug therapy
CPT/HCPCS: 74018; 74420; C1758; C1769; J1953; J2543; J3010; J3490

== ENCOUNTER 2018-11-24 22:16 | Emergency (ER) | payer MEDICARE, MEDICAID ==
--- NOTE | 2018-11-24 23:29 | CT ---
CT ABDOMEN AND PELVIS: 11/24/2018 HISTORY: Renal stent problem, pain. COMPARISON: 08/14/2018 TECHNIQUE: Axial CT imaging at 5 mm intervals, from the lung bases through the pubic symphysis, without contrast . Coronal reformatted imaging obtained. FINDINGS: Ventriculoperitoneal shunt tubing is seen curling in the upper abdomen. The lack of contrast media l imits assessment of the viscera, bowel, and vascular structures, and for lymphadenopathy. The imaged lung bases are unremarkable. No free intraperitoneal air is appreciated. Limited assessment of the liver and spleen appears unremarkable. Faintly visualized gallbladder is g rossly unremarkable. The pancreas and adrenal glands appear within normal limits. There are multiple subcentimeter, nonobstructing stones noted within the left kidney. There is a stone within the right renal pelvis, which measures approximately 8 mm in AP dimension. There is a double-J ureteral stent present on the right, the proximal curl within the renal pelvis an d the distal curl within the urinary bladder. There is chronic deformity of the bilateral hips. There is prominent stool seen throughout a mildly prominent colon. There is no evidence for small jos wel obstruction. There is mild nonspecific stranding of the fat, adjacent to the right ureter, and there is mild nonsp ecific stranding of the retroperitoneal fat within the lower lumbar spine region. There is no worrisome lytic or blastic bone lesion. IMPRESSION: Bilateral renal calculi. Right double-J ureteral stent in place. Calcification within the right luli al pelvis, a stable finding. POS: OFF
[2018-11-25 00:20] LABS: Bacteria/HPF 1+ HPF (None Seen); Bilirubin Negative (Negative); Blood, Urine 2+ (Negative); Clarity Turbid (Clear); Glucose, Urine (Dipstick) Normal (Negative); Leukocyte 500 Leu/uL (Negative); Mucous/LPF Rare LPF (<2+); Nitrite Negative (Negative); Protein, Urine (Dipstick) 300 mg/dL (Neg-Trace); RBC/HPF Greater than 50 HPF (0-3); Squamous Epithelial 0-3 HPF (0-3); WBC/HPF 21-50 HPF (0-3)
[2018-11-25] MEDS ORDERED: Fleet Enema 133 ML BOT PR SCH (00:45)
== END 2018-11-25 02:36 | disposition home or self-care (01) ==
LOC: ERS 22:16
DX: N39.0 Urinary tract infection, site not specified (principal); K59.00 Constipation, unspecified; Z79.899 Other long term (current) drug therapy
CPT/HCPCS: 51701; 74176; 81003; 81015; 87086

== ENCOUNTER 2019-04-19 10:02 | Outpatient (CLI) | payer MEDICARE, MEDICAID ==
--- NOTE | 2019-04-19 10:36 | ULT ---
Bilateral renal ultrasound CLINICAL INDICATION: Renal Insufficiency COMPARISON: None FINDINGS: The evaluation is limited by patient inability to tolerate positioning for portions of the exam. Right kidney: No solid mass, or hydronephrosis. Left kidney: No solid mass, or hydronephrosis. Urinary bladder: Normal IMPRESSION: Unremarkable exam.
--- NOTE | 2019-04-19 10:48 | RAD ---
XR Abdomen 1 View/KUB HISTORY: Renal calculi. COMPARISON: 12/09/2018 study. FINDINGS: The bowel gas pattern is nonobstructive. There is a moderate amount of stool throughout the colon, this obscures both renal outlines. The right ureteral stent has been removed. I believe that the left-sided renal calculi are still present. No definitive ureteral calculus. A ventricular peritoneal shunt tube is present. There is a second catheter within the right side of t he pelvis which may represent an older catheter. There is a chronic left hip dislocation. IMPRESSION: Stool obscures both renal outlines I believe the left-sided renal calculi are still prese nt. No definite right-sided calculi.
== END 2019-04-19 10:03 | disposition home or self-care (01) ==
LOC: ULT 10:02
PROVIDERS: ATTEND Urology
DX: N20.0 Calculus of kidney (principal); G80.9 Cerebral palsy, unspecified
CPT/HCPCS: 74018; 76770

== ENCOUNTER 2020-10-14 19:30 | Emergency (ER) | payer MEDICARE, MEDICAID ==
[2020-10-14 21:19] LABS: #Lymphocytes 1.8 thou/uL (1.20-3.40); #Monocytes 0.7 thou/uL (0.11-0.59); #Neutrophils 4.5 thou/uL (1.40-6.50); %Basophils 0.2 % (0.0-1.0); %Eosinophils 0.8 % (0.0-10.0); %Lymphocytes 25.6 % (21.0-51.0); %Neutrophils 63.5 % (42.0-75.0); Hemoglobin 14.6 g/dL (14.0-18.0); Mean Corpuscular HGB CONC 35.5 g/dL (32.0-36.0); Mean Corpuscular Volume 93.1 fL (78.0-98.0); Mean Platelet Volume 7.7 fL (7.4-10.4); Platelet Count 151 thou/uL (130-400); RBC Distribution Width 11.3 % (11.5-14.5); Red Blood Cell (RBC) Count 4.41 mill/uL (4.70-6.10)
[2020-10-14 21:20] LABS: #Eosinphils 0.1 thou/uL (0.0-0.7)
[2020-10-14 21:37] LABS: ALT (SGPT) 34 U/L (8-55); AST (SGOT) 36 U/L (5-34); Albumin 4.4 g/dL (3.5-5.0); Alkaline Phosphatase 58 U/L (40-110); Anion Gap 14 mmol/L (10-20); BUN (Urea Nitrogen) 9 mg/dL (8.9-20.6); Bilirubin, Total 0.5 mg/dL (0.2-1.2); Calc. Creatinine Clearance 0 mL/min (70-130); Calcium 8.9 mg/dL (7.8-10.44); Carbon Dioxide 19 mmol/L (22-29); Chloride 108 mmol/L (98-107); Globulin 2.5 g/dL (2.4-3.5); Glucose 118 mg/dL (70-105); Potassium 3.6 mmol/L (3.5-5.1); Protein, Total 6.9 g/dL (6.0-8.3); Sodium 137 mmol/L (136-145)
== END 2020-10-14 22:00 | disposition home or self-care (01) ==
LOC: ERS 19:30
DX: R56.9 Unspecified convulsions (principal); Z79.899 Other long term (current) drug therapy
CPT/HCPCS: 36415; 80053; 80164; 80177; 85025; 99284

== ENCOUNTER 2021-06-29 13:20 | Outpatient (CLI) | payer MEDICARE, MEDICAID | END 2021-06-29 13:21 | disposition home or self-care (01) | LOC: RAD 13:20 | PROVIDERS: ATTEND Urology | DX: N20.0 Calculus of kidney (principal) | CPT/HCPCS: 74018 ==

== ENCOUNTER 2021-07-13 14:57 | Outpatient (CLI) | payer MEDICARE, MEDICAID | END 2021-07-13 14:58 | disposition home or self-care (01) | LOC: ULT 14:57 | PROVIDERS: ATTEND Urology | DX: Q53.10 Unspecified undescended testicle, unilateral (principal); N20.0 Calculus of kidney | CPT/HCPCS: 76705; 76770 ==

== ENCOUNTER 2022-08-13 09:45 | Outpatient (CLI) | payer MEDICARE, MEDICAID | END 2022-08-13 09:46 | disposition home or self-care (01) | LOC: CT 09:45 | PROVIDERS: ATTEND Urology | DX: N20.0 Calculus of kidney (principal) | CPT/HCPCS: 74176 ==

== ENCOUNTER 2023-02-05 06:48 | Day surgery (SDC) | payer MEDICARE, MEDICAID ==
[2023-01-22 11:32] VITALS: BMI 18.5
[2023-02-05] MEDS ORDERED: Vancomycin 1 GM/200 ML (FROZEN) BAG ONE (07:21)
[2023-02-05] MEDS ORDERED: LevoFLOXacin 500 mg/D5W 100 ML BAG ONE (07:22)
[2023-02-05] MEDS ORDERED: Iopamidol 30 ML ONE (07:59)
[2023-02-05] MEDS ORDERED: fentaNYL PF 100 MCG/2 ML SYRINGE ONE (08:12)
[2023-02-05] MEDS ORDERED: Rocuronium Bromide 10 MG/ML (10ML VIAL) ONE (08:35)
[2023-02-05] MEDS ORDERED: Lidocaine 1% PF 5 ML VIAL ONE (08:35)
[2023-02-05] MEDS ORDERED: Ondansetron PF 4 MG/2 ML Vial ONE ×2 (08:35→09:49)
[2023-02-05] MEDS ORDERED: PROPOFOL 200 MG/20 ML VIAL ONE (08:35)
[2023-02-05] MEDS ORDERED: Oxybutynin 5 MG TAB ONE (10:34)
[2023-02-05] MEDS ORDERED: Phenazopyridine HCl 100 MG TAB ONE (10:34)
== END 2023-02-05 11:03 | disposition home or self-care (01) ==
LOC: SDC 06:48
PROVIDERS: ATTEND Urology
PROC: 0TC08ZZ Extirpation of Matter from Right Kidney, Via Natural or Artificial Opening Endoscopic (ICD-10-PCS; principal; 2023-02-05)
PROC: 0T768DZ Dilation of Right Ureter with Intraluminal Device, Via Natural or Artificial Opening Endoscopic (ICD-10-PCS; 2023-02-05)
DX: N20.0 Calculus of kidney (principal); G80.9 Cerebral palsy, unspecified; G40.909 Epilepsy, unspecified, not intractable, without status epilepticus; K59.09 Other constipation; Z96.649 Presence of unspecified artificial hip joint; Z79.899 Other long term (current) drug therapy
CPT/HCPCS: 52356; 74018; 74420; C1747; C1769; C2617; J3370; J1956; J2405; J2704; Q9967

== ENCOUNTER 2023-03-12 14:21 | Outpatient (CLI) | payer MEDICARE, MEDICAID ==
[2023-03-12 15:32] LABS: Hematocrit 42.4 % (38.8-50.0); Hemoglobin 14.6 g/dL (13.5-17.5); Mean Corpuscular HGB CONC 34.4 g/dL (32.0-36.0); Mean Corpuscular Hemoglobin 30.9 pg (27.0-33.0); Mean Corpuscular Volume 89.8 fl (81.2-95.1); Mean Platelet Volume 8.6 fl (7.4-10.4); Platelet Count 214 10x3/uL (150-450); RBC Distribution Width 12.2 % (11.5-14.5); Red Blood Cell (RBC) Count 4.72 10x6/uL (4.32-5.72); White Blood Cell (WBC) Count 8.8 10x3/uL (3.5-10.5)
[2023-03-12 15:35] LABS: PTT 31.9 sec (22.0-33.0); Prothrombin Time 11.1 sec (9.5-12.1)
[2023-03-12 15:38] LABS: Anion Gap 16 mmol/L (10-20); BUN (Urea Nitrogen) 10 mg/dL (8.9-20.6); Calc. Creatinine Clearance 0 mL/min (70-130); Calcium 9.4 mg/dL (7.8-10.44); Carbon Dioxide 19 mmol/L (22-29); Chloride 109 mmol/L (98-107); Estimated GFR 119; Glucose 120 mg/dL (70-105); Potassium 3.9 mmol/L (3.5-5.1); Sodium 140 mmol/L (136-145)
== END 2023-03-12 14:22 | disposition home or self-care (01) ==
LOC: LABBT 14:21
PROVIDERS: ATTEND Urology
DX: Z01.818 Encounter for other preprocedural examination (principal); N20.0 Calculus of kidney; M62.461 Contracture of muscle, right lower leg; M62.462 Contracture of muscle, left lower leg; G80.9 Cerebral palsy, unspecified; Q53.10 Unspecified undescended testicle, unilateral; K59.00 Constipation, unspecified; Q03.9 Congenital hydrocephalus, unspecified; N39.498 Other specified urinary incontinence; Z86.19 Personal history of other infectious and parasitic diseases
CPT/HCPCS: 80048; 81001; 85027; 85610; 85730; 87077; 87086; 87186; 93005; 93010

== ENCOUNTER 2023-03-26 06:45 | Day surgery (SDC) | payer MEDICARE, MEDICAID ==
[2023-03-26] MEDS ORDERED: Lidocaine 1% MPF 2 ML VIAL ONE (07:40)
[2023-03-26] MEDS ORDERED: LevoFLOXacin 500 mg/D5W 100 ML BAG ONE (07:41)
[2023-03-26] MEDS ORDERED: Vancomycin 1 GM/200 ML (FROZEN) BAG ONE (07:41)
[2023-03-26] MEDS ORDERED: Promethazine HCl 25 MG/ML VIAL IM PRN (08:07)
[2023-03-26] MEDS ORDERED: Ondansetron HCl/PF 4 MG/2 ML Vial IVP PRN (08:07)
[2023-03-26] MEDS ORDERED: HYDROmorphone 2 MG/ML VIAL SLOW IVP PRN (08:07)
[2023-03-26] MEDS ORDERED: Dexamethasone 4 mg/ml Vial ONE (08:14)
[2023-03-26] MEDS ORDERED: Dexmedetomidine 200 MCG/2 ML VIAL ONE (08:14)
[2023-03-26] MEDS ORDERED: PROPOFOL 20 ML ONE (08:14)
[2023-03-26] MEDS ORDERED: Rocuronium Bromide 10 MG/ML (10ML VIAL) ONE ×2 (08:14→11:15)
[2023-03-26] MEDS ORDERED: Ondansetron PF 4 MG/2 ML Vial ONE ×2 (08:14→11:15)
[2023-03-26] MEDS ORDERED: Midazolam HCl 2 mg/2 ml Vial ONE (08:14)
[2023-03-26] MEDS ORDERED: Iopamidol 15 ML ONE (08:36)
[2023-03-26] MEDS ORDERED: Fentanyl 250 MCG/5 ML VIAL ONE (08:58)
[2023-03-26] MEDS ORDERED: SUGAMMADEX SODIUM 200 MG/2 ML VIAL ONE (09:27)
[2023-03-26] MEDS ORDERED: fentaNYL PF 100 MCG/2 ML SYRINGE ONE (10:36)
[2023-03-26] MEDS ORDERED: Metoprolol Tartrate 5 MG/5 ML VIAL ONE ×2 (10:57→10:58)
[2023-03-26] MEDS ORDERED: Phenazopyridine HCl 100 MG TAB ONE (11:00)
[2023-03-26] MEDS ORDERED: Oxybutynin 5 MG TAB ONE (11:00)
[2023-03-26] MEDS ORDERED: PROPOFOL 200 MG/20 ML VIAL ONE (11:15)
[2023-03-26] MEDS ORDERED: Lidocaine 1% PF 5 ML VIAL ONE (11:15)
[2023-03-26] MEDS ORDERED: Dexamethasone 20 MG/5 ML VIAL ONE (11:15)
== END 2023-03-26 12:25 | disposition home or self-care (01) ==
LOC: SDC 06:45
PROVIDERS: ATTEND Urology
PROC: 0TC78ZZ Extirpation of Matter from Left Ureter, Via Natural or Artificial Opening Endoscopic (ICD-10-PCS; principal; 2023-03-26)
PROC: 0T778DZ Dilation of Left Ureter with Intraluminal Device, Via Natural or Artificial Opening Endoscopic (ICD-10-PCS; 2023-03-26)
DX: N20.0 Calculus of kidney (principal); N39.498 Other specified urinary incontinence; G80.9 Cerebral palsy, unspecified; Z79.899 Other long term (current) drug therapy; G40.909 Epilepsy, unspecified, not intractable, without status epilepticus; N39.0 Urinary tract infection, site not specified; Z96.649 Presence of unspecified artificial hip joint; Z98.890 Other specified postprocedural states
CPT/HCPCS: 52356; 74018; 74420; 82365; J3370; 88300; C1747; C1769; C2617; J1100; J1956; J2250; J2405; J2704; J3010; Q9967

== ENCOUNTER 2023-04-01 11:57 | Inpatient (IN) | payer MEDICARE, MEDICAID ==
[~2023-04-01 11:57] MED LIST: Iopamidol-370 76% 500 ML MDV (1 ML CHARGE) ONE
[2023-04-01 12:35] LABS: #Monocytes 1.2 thou/uL (0.11-0.59); %Basophils 0.4 % (0.0-1.0); %Eosinophils 9.6 % (0.0-10.0); %Lymphocytes 20.7 % (21.0-51.0); %Monocytes 11.8 % (0.0-10.0); %Neutrophils 56.9 % (42.0-75.0); Hematocrit 32.4 % (42.0-52.0); Hemoglobin 11.1 g/dL (14.0-18.0); Mean Corpuscular HGB CONC 34.3 g/dL (32.0-36.0); Mean Corpuscular Hemoglobin 31.4 pg (27.0-31.0); Mean Corpuscular Volume 91.5 fl (78.0-98.0); Mean Platelet Volume 9.2 fL (7.4-10.4); Platelet Count 229 10x3/uL (130-400); RBC Distribution Width 12.3 % (11.5-14.5); Red Blood Cell (RBC) Count 3.54 mill/uL (4.70-6.10); White Blood Cell (WBC) Count 10.5 10x3/uL (4.8-10.8)
[2023-04-01 12:58] LABS: ALT (SGPT) Less than 7 U/L (8-55); AST (SGOT) 10 U/L (5-34); Albumin 4.3 g/dL (3.5-5.0); Alkaline Phosphatase 77 U/L (40-110); Anion Gap 16 mmol/L (10-20); BUN (Urea Nitrogen) 7 mg/dL (8.9-20.6); Bilirubin, Total 0.5 mg/dL (0.2-1.2); Calc. Creatinine Clearance 0 mL/min (70-130); Calcium 9.6 mg/dL (7.8-10.44); Carbon Dioxide 22 mmol/L (22-29); Chloride 103 mmol/L (98-107); Estimated GFR 118; Globulin 2.8 g/dL (2.4-3.5); Glucose 101 mg/dL (70-105); Potassium 4.8 mmol/L (3.5-5.1); Protein, Total 7.1 g/dL (6.0-8.3); Sodium 136 mmol/L (136-145)
[2023-04-01] MEDS ORDERED: Vancomycin 1 GM/200 ML (FROZEN) BAG ONE (13:12)
[2023-04-01] MEDS ORDERED: Meropenem 1 GM in Sodium Chloride 0.9% 100 ML IVPB SCH (13:45)
[2023-04-01] MEDS ORDERED: Ondansetron ODT 4 MG TAB PO PRN (13:46)
[2023-04-01] MEDS ORDERED: Acetaminophen 325 MG TAB PO PRN (13:46)
[2023-04-01] MEDS ORDERED: VANCOMYCIN IVPB PRN (13:50)
[2023-04-01] MEDS ORDERED: Sodium Chloride 0.9% 1,000 ML IV SCH (14:00)
[2023-04-01 14:13] LABS: Bacteria/HPF None Seen HPF (None Seen); Bilirubin Negative (Negative); Blood, Urine 3+ (Negative); CAUTI Indications for Culture Acute Hematuria; Clarity Turbid (Clear); Glucose, Urine (Dipstick) Normal (Negative); Ketone, Urine Negative (Negative); Leukocyte 250 Leu/uL (Negative); Nitrite Negative (Negative); Protein, Urine (Dipstick) Negative (Neg-Trace); RBC/HPF Greater than 50 HPF (0-3); Specific Gravity, Urine 1.008 (1.002-1.036); Squamous Epithelial None Seen HPF (0-3); Urobilinogen Normal mg/dL (Less than 2)
[2023-04-01 14:34] LABS: WBC/HPF 21-50 HPF (0-3)
[2023-04-01 14:35] LABS: Urine Culture Reflex Yes Yes
[2023-04-01] MEDS ORDERED: Sodium Bicarbonate 2.5 MEQ/5 ML VIAL ONE (15:08)
[2023-04-01] MEDS ORDERED: fentaNYL 50 mcg/mL 1 mL Vial ONE (15:24)
[2023-04-01] MEDS ORDERED: diphenhydrAMINE 50 MG/ML VIAL IVP PRN (17:02)
[2023-04-01] MEDS ORDERED: HYDROcodone/Acetaminophen 5/325 mg Tablet PO PRN ×2 (17:02)
[2023-04-01] MEDS: Sodium Chloride 0.9% 1,000 ML IV SCH (17:28)
[2023-04-01 18:44] LABS: BF Color Red; Body Fluid Source Abscess Fluid; Clarity Cloudy/Turbid (Clear); Tube # EDTA
[2023-04-01 19:30] LABS: Cell Count Non Hematic 8 %; Lymphocytes 19 %
[2023-04-01 19:38] LABS: Segmented Neutrophils 73 %
[2023-04-01] MEDS ORDERED: Vancomycin Dose by Levels Sliding Scale (Wt <71) FS SCH (20:00)
[2023-04-01] MEDS: levETIRAcetam 500 MG TAB PO SCH (20:49)
[2023-04-01] MEDS: Divalproex Sodium 250 MG (DR) TAB PO SCH (20:50)
[2023-04-01] MEDS: Zonisamide 100 MG CAP PO SCH (20:50)
[2023-04-01] MEDS: Acetaminophen 500 MG TAB PO PRN (20:51)
[2023-04-01] MEDS: Famotidine/PF 20 mg/2ml Vial SLOW IVP SCH (20:51)
[2023-04-01] MEDS: QUINIDINE PO SCH (20:59)
[2023-04-01] MEDS: DEXTROMETHORPHAN PO SCH (20:59)
[2023-04-01] MEDS ORDERED: Vancomycin 1 GM in Premix 1 BAG IVPB SCH (21:00)
[2023-04-01] MEDS: tiZANidine HCl 4 MG TAB PO PRN (22:07)
[2023-04-02] MEDS: Meropenem 1 GM in Sodium Chloride 0.9% 100 ML IVPB SCH ×3 (02:30→18:00)
[2023-04-02 06:12] LABS: #Eosinphils 0.8 thou/uL (0.0-0.7); #Monocytes 0.6 thou/uL (0.11-0.59); #Neutrophils 2.5 thou/uL (1.40-6.50); %Basophils 0.5 % (0.0-1.0); %Eosinophils 14.8 % (0.0-10.0); %Lymphocytes 30.7 % (21.0-51.0); %Monocytes 9.9 % (0.0-10.0); %Neutrophils 43.6 % (42.0-75.0); Hematocrit 26.1 % (42.0-52.0); Hemoglobin 8.7 g/dL (14.0-18.0); Mean Corpuscular HGB CONC 33.3 g/dL (32.0-36.0); Mean Corpuscular Hemoglobin 30.6 pg (27.0-31.0); Mean Corpuscular Volume 91.9 fl (78.0-98.0); Mean Platelet Volume 9.4 fL (7.4-10.4); Platelet Count 173 10x3/uL (130-400); RBC Distribution Width 12.5 % (11.5-14.5); Red Blood Cell (RBC) Count 2.84 mill/uL (4.70-6.10); White Blood Cell (WBC) Count 5.7 10x3/uL (4.8-10.8)
[2023-04-02 06:42] LABS: Anion Gap 10 mmol/L (10-20); BUN (Urea Nitrogen) 5 mg/dL (8.9-20.6); Calc. Creatinine Clearance 92 mL/min (70-130); Calcium 7.9 mg/dL (7.8-10.44); Carbon Dioxide 22 mmol/L (22-29); Chloride 109 mmol/L (98-107); Estimated GFR 126; Glucose 95 mg/dL (70-105); Potassium 3.2 mmol/L (3.5-5.1); Sodium 138 mmol/L (136-145)
[2023-04-02] MEDS: Polyethylene Glycol 3350 17 GM Packet PER TUBE SCH (08:53)
[2023-04-02] MEDS: tiZANidine HCl 4 MG TAB PO PRN ×2 (08:53→17:20)
[2023-04-02] MEDS: Tamsulosin HCl 0.4 MG CAP PO SCH (08:54)
[2023-04-02] MEDS: Sodium Chloride 0.9% 1,000 ML IV SCH ×3 (08:54→16:35)
[2023-04-02] MEDS: DEXTROMETHORPHAN PO SCH ×2 (08:54→20:30)
[2023-04-02] MEDS: levETIRAcetam 500 MG TAB PO SCH ×2 (08:54→20:28)
[2023-04-02] MEDS: Famotidine/PF 20 mg/2ml Vial SLOW IVP SCH ×2 (08:54→20:29)
[2023-04-02] MEDS: QUINIDINE PO SCH ×2 (08:54→20:30)
[2023-04-02] MEDS ORDERED: Fluticasone Propionate Nasal Spray 16 gm Bottle FS PRN ×2 (10:02→10:10)
[2023-04-02] MEDS ORDERED: Non-Formulary Item 1 EACH (Melatonin [Melatonin] 10 MG Tablet) PO PRN (10:02)
[2023-04-02] MEDS ORDERED: Docusate 100 MG CAP PO PRN (10:02)
[2023-04-02] MEDS ORDERED: Melatonin 3 MG TAB PO PRN (10:10)
[2023-04-02] MEDS: Divalproex Sodium 250 MG (DR) TAB PO SCH ×2 (10:13→20:28)
[2023-04-02] MEDS: Zonisamide 100 MG CAP PO SCH ×2 (10:13→20:29)
[2023-04-02] MEDS ORDERED: Sertraline 100 MG TAB PO SCH (10:15)
[2023-04-02] MEDS ORDERED: Non-Formulary Item 1 EACH (Plecanatide [Trulance] 3 MG Tablet) PO SCH (10:15)
[2023-04-02 12:15] LABS: Vancomycin, Random 4.4 ug/mL (See Comment)
[2023-04-02] MEDS: Vancomycin HCl 750 MG in Sodium Chloride 0.9% 250 ML 250 ML IVPB SCH (13:34)
[2023-04-02] MEDS: Acetaminophen 500 MG TAB PO PRN (13:39)
[2023-04-02] MEDS: Potassium Chloride 20 MEQ in Premix 1 BAG IVPB SCH ×2 (16:35→19:08)
[2023-04-02 17:11] LABS: Hemoglobin 8.6 g/dL (14.0-18.0)
[2023-04-03] MEDS: Sodium Chloride 0.9% 1,000 ML IV SCH ×2 (00:19→05:23)
[2023-04-03] MEDS: Vancomycin HCl 750 MG in Sodium Chloride 0.9% 250 ML 250 ML IVPB SCH ×2 (01:16→17:04)
[2023-04-03] MEDS: Meropenem 1 GM in Sodium Chloride 0.9% 100 ML IVPB SCH ×3 (01:16→19:53)
[2023-04-03 06:15] LABS: #Eosinphils 0.5 thou/uL (0.0-0.7); #Monocytes 0.6 thou/uL (0.11-0.59); #Neutrophils 3.2 thou/uL (1.40-6.50); %Basophils 0.3 % (0.0-1.0); %Eosinophils 8.4 % (0.0-10.0); %Lymphocytes 32.2 % (21.0-51.0); %Monocytes 8.7 % (0.0-10.0); %Neutrophils 49.9 % (42.0-75.0); Hemoglobin 7.9 g/dL (14.0-18.0); Mean Corpuscular HGB CONC 32.9 g/dL (32.0-36.0); Mean Corpuscular Hemoglobin 31.2 pg (27.0-31.0); Mean Corpuscular Volume 94.9 fl (78.0-98.0); Mean Platelet Volume 9.2 fL (7.4-10.4); Platelet Count 159 10x3/uL (130-400); RBC Distribution Width 12.9 % (11.5-14.5); Red Blood Cell (RBC) Count 2.53 mill/uL (4.70-6.10); White Blood Cell (WBC) Count 6.3 10x3/uL (4.8-10.8)
[2023-04-03 07:01] LABS: Anion Gap 11 mmol/L (10-20); BUN (Urea Nitrogen) 5 mg/dL (8.9-20.6); Calc. Creatinine Clearance 89 mL/min (70-130); Calcium 8.1 mg/dL (7.8-10.44); Carbon Dioxide 19 mmol/L (22-29); Chloride 114 mmol/L (98-107); Estimated GFR 125; Glucose 86 mg/dL (70-105); Potassium 4.1 mmol/L (3.5-5.1); Sodium 140 mmol/L (136-145)
[2023-04-03] MEDS: Tamsulosin HCl 0.4 MG CAP PO SCH (08:29)
[2023-04-03] MEDS: Sertraline 100 MG TAB PO SCH (08:30)
[2023-04-03] MEDS: Zonisamide 100 MG CAP PO SCH ×2 (08:30→20:08)
[2023-04-03] MEDS: Divalproex Sodium 250 MG (DR) TAB PO SCH ×2 (08:30→20:07)
[2023-04-03] MEDS: levETIRAcetam 500 MG TAB PO SCH ×2 (08:31→20:07)
[2023-04-03] MEDS: DEXTROMETHORPHAN PO SCH ×2 (08:32→20:08)
[2023-04-03] MEDS: QUINIDINE PO SCH ×2 (08:32→20:08)
[2023-04-03] MEDS: Famotidine/PF 20 mg/2ml Vial SLOW IVP SCH ×2 (08:32→19:54)
[2023-04-03] MEDS: Polyethylene Glycol 3350 17 GM Packet PER TUBE SCH (08:32)
[2023-04-03] MEDS ORDERED: PLECANATIDE 3 MG PO SCH (09:00)
[2023-04-03] MEDS ORDERED: Furosemide 20 MG/2 ML VIAL SLOW IVP SCH (12:00)
[2023-04-03] MEDS: tiZANidine HCl 4 MG TAB PO PRN ×2 (12:32→21:12)
[2023-04-03] MEDS ORDERED: Iopamidol-370 76% 500 ML MDV (1 ML CHARGE) ONE (12:49)
[2023-04-03] MEDS ORDERED: Morphine 2 MG/ML VIAL SLOW IVP SCH (13:30)
[2023-04-03] MEDS ORDERED: Lorazepam 2 MG/ML VIAL SLOW IVP PRN (16:39)
[2023-04-03] MEDS ORDERED: Acetaminophen 325 MG TAB PO SCH (16:45)
[2023-04-03] MEDS ORDERED: Mirabegron ER 25 MG ER.TAB PO SCH (17:00)
[2023-04-03] MEDS ORDERED: Hyoscyamine SL 0.125 MG TAB SL SCH (17:00)
[2023-04-03 17:10] LABS: Hematocrit 24.5 % (42.0-52.0); Hemoglobin 8.4 g/dL (14.0-18.0)
[2023-04-03 20:54] LABS: Platelet Count 200 10x3/uL (130-400)
[2023-04-03 21:05] LABS: Fibrinogen 338 mg/dL (253-463)
[2023-04-03 21:06] LABS: INR-International Normal Ratio 1.1; Prothrombin Time 14.9 sec (12.0-14.7)
[2023-04-03 21:15] LABS: D-Dimer Test Less than 0.27 *mcg/mL (0.27-0.43)
[2023-04-03 21:20] LABS: ALT (SGPT) Less than 7 U/L (8-55); AST (SGOT) 11 U/L (5-34); Albumin 3.7 g/dL (3.5-5.0); Alkaline Phosphatase 66 U/L (40-110); Anion Gap 14 mmol/L (10-20); BUN (Urea Nitrogen) 4 mg/dL (8.9-20.6); Bilirubin, Total 0.8 mg/dL (0.2-1.2); Calc. Creatinine Clearance 84 mL/min (70-130); Calcium 8.7 mg/dL (7.8-10.44); Carbon Dioxide 18 mmol/L (22-29); Chloride 111 mmol/L (98-107); Estimated GFR 123; Globulin 2.3 g/dL (2.4-3.5); Glucose 114 mg/dL (70-105); Potassium 3.8 mmol/L (3.5-5.1); Sodium 139 mmol/L (136-145)
[2023-04-03 22:17] LABS: Hematocrit 32.3 % (42.0-52.0); Hemoglobin 10.8 g/dL (14.0-18.0)
[2023-04-04 01:42] LABS: Vancomycin, Trough 5.1 ug/mL
[2023-04-04] MEDS: Meropenem 1 GM in Sodium Chloride 0.9% 100 ML IVPB SCH ×3 (02:34→17:06)
[2023-04-04] MEDS: Vancomycin HCl 750 MG in Sodium Chloride 0.9% 250 ML 250 ML IVPB SCH ×3 (02:34→14:47)
[2023-04-04 04:08] LABS: #Eosinphils 0.5 thou/uL (0.0-0.7); #Monocytes 0.7 thou/uL (0.11-0.59); #Neutrophils 4.4 thou/uL (1.40-6.50); %Basophils 0.5 % (0.0-1.0); %Eosinophils 6.3 % (0.0-10.0); %Lymphocytes 26.6 % (21.0-51.0); %Monocytes 9.2 % (0.0-10.0); %Neutrophils 56.8 % (42.0-75.0); Hematocrit 28.1 % (42.0-52.0); Hemoglobin 9.5 g/dL (14.0-18.0); Mean Corpuscular HGB CONC 33.8 g/dL (32.0-36.0); Mean Corpuscular Hemoglobin 29.9 pg (27.0-31.0); Platelet Count 135 10x3/uL (130-400); RBC Distribution Width 14.6 % (11.5-14.5); Red Blood Cell (RBC) Count 3.18 mill/uL (4.70-6.10); White Blood Cell (WBC) Count 7.7 10x3/uL (4.8-10.8)
[2023-04-04 04:12] LABS: Mean Corpuscular Volume 88.4 fl (78.0-98.0)
[2023-04-04 04:33] LABS: Anion Gap 11 mmol/L (10-20); BUN (Urea Nitrogen) 4 mg/dL (8.9-20.6); Calc. Creatinine Clearance 95 mL/min (70-130); Carbon Dioxide 19 mmol/L (22-29); Chloride 109 mmol/L (98-107); Estimated GFR 127; Glucose 109 mg/dL (70-105); Sodium 135 mmol/L (136-145)
[2023-04-04] MEDS ORDERED: Sodium Chloride 0.9% 1,000 ML IV SCH (08:15)
[2023-04-04] MEDS: tiZANidine HCl 4 MG TAB PO PRN ×2 (08:27→20:35)
[2023-04-04] MEDS: Famotidine/PF 20 mg/2ml Vial SLOW IVP SCH ×2 (08:44→20:36)
[2023-04-04] MEDS ORDERED: FLU VACC QS2023-24(6MOS UP)/PF 60 MCG/0.5 ML SYRINGE IM ONE (09:00)
[2023-04-04] MEDS: levETIRAcetam 500 MG TAB PO SCH ×3 (10:09→20:35)
[2023-04-04] MEDS: Sertraline 100 MG TAB PO SCH ×2 (10:09→12:41)
[2023-04-04] MEDS: Tamsulosin HCl 0.4 MG CAP PO SCH ×2 (10:10→12:41)
[2023-04-04] MEDS: Mirabegron ER 25 MG ER.TAB PO SCH ×2 (10:11→12:40)
[2023-04-04] MEDS: Zonisamide 100 MG CAP PO SCH ×3 (10:11→20:36)
[2023-04-04] MEDS: Divalproex Sodium 250 MG (DR) TAB PO SCH ×3 (10:16→20:35)
[2023-04-04] MEDS: Polyethylene Glycol 3350 17 GM Packet PER TUBE SCH (10:17)
[2023-04-04] MEDS ORDERED: Lidocaine 1% PF 5 ML VIAL ONE ×2 (10:48→12:50)
[2023-04-04] MEDS ORDERED: Rocuronium Bromide 10 MG/ML (10ML VIAL) ONE ×2 (10:48→12:50)
[2023-04-04] MEDS ORDERED: PROPOFOL 20 ML ONE (10:48)
[2023-04-04] MEDS ORDERED: Ondansetron PF 4 MG/2 ML Vial ONE ×2 (10:49→12:50)
[2023-04-04] MEDS ORDERED: fentaNYL PF 100 MCG/2 ML SYRINGE ONE (10:54)
[2023-04-04] MEDS ORDERED: Iopamidol 15 ML ONE (12:39)
[2023-04-04] MEDS: DEXTROMETHORPHAN PO SCH ×2 (12:40→20:36)
[2023-04-04] MEDS: QUINIDINE PO SCH ×2 (12:40→20:36)
[2023-04-04] MEDS ORDERED: Dexmedetomidine 200 MCG/2 ML VIAL ONE (12:44)
[2023-04-04] MEDS ORDERED: Sterile Water 10 ML ONE (12:45)
[2023-04-04] MEDS ORDERED: Dexamethasone 20 MG/5 ML VIAL ONE ×2 (12:45→12:50)
[2023-04-04] MEDS ORDERED: PROPOFOL 200 MG/20 ML VIAL ONE (12:50)
[2023-04-04] MEDS ORDERED: PHENYLEPHRINE-NS 100 MCG/ML 10 ML SYRINGE ONE ×2 (12:50→13:02)
[2023-04-04] MEDS ORDERED: Midazolam HCl 2 mg/2 ml Vial ONE (12:56)
[2023-04-04] MEDS ORDERED: Ondansetron HCl/PF 4 MG/2 ML Vial IVP PRN (13:40)
[2023-04-04] MEDS ORDERED: HYDROmorphone 2 MG/ML VIAL SLOW IVP PRN (13:40)
[2023-04-04] MEDS ORDERED: Promethazine HCl 25 MG/ML VIAL IM PRN (13:40)
[2023-04-04] MEDS ORDERED: Morphine Sulfate 2 MG/ML SYRINGE SLOW IVP PRN (13:40)
[2023-04-04] MEDS ORDERED: Albumin 5% 500 ML ONE (13:41)
[2023-04-04] MEDS ORDERED: SUGAMMADEX SODIUM 200 MG/2 ML VIAL ONE (14:35)
[2023-04-04 15:41] LABS: #Eosinphils 0.1 thou/uL (0.0-0.7); #Monocytes 0.2 thou/uL (0.11-0.59); #Neutrophils 7.6 thou/uL (1.40-6.50); %Basophils 0.2 % (0.0-1.0); %Eosinophils 1.6 % (0.0-10.0); %Lymphocytes 5.7 % (21.0-51.0); %Monocytes 2.8 % (0.0-10.0); %Neutrophils 89.1 % (42.0-75.0); Hematocrit 29.8 % (42.0-52.0); Hemoglobin 9.9 g/dL (14.0-18.0); Mean Corpuscular HGB CONC 33.2 g/dL (32.0-36.0); Mean Corpuscular Hemoglobin 30.6 pg (27.0-31.0); Mean Platelet Volume 8.8 fL (7.4-10.4); Platelet Count 173 10x3/uL (130-400); RBC Distribution Width 14.7 % (11.5-14.5); Red Blood Cell (RBC) Count 3.24 mill/uL (4.70-6.10); White Blood Cell (WBC) Count 8.5 10x3/uL (4.8-10.8)
[2023-04-04 15:58] LABS: INR-International Normal Ratio 1.2; PTT 38.1 sec (22.9-36.1); Prothrombin Time 15.6 sec (12.0-14.7)
[2023-04-04 16:03] LABS: Anion Gap 13 mmol/L (10-20); BUN (Urea Nitrogen) 4 mg/dL (8.9-20.6); Calc. Creatinine Clearance 91 mL/min (70-130); Calcium 8.3 mg/dL (7.8-10.44); Carbon Dioxide 18 mmol/L (22-29); Chloride 111 mmol/L (98-107); Estimated GFR 125; Glucose 122 mg/dL (70-105); Potassium 3.8 mmol/L (3.5-5.1); Sodium 138 mmol/L (136-145)
[2023-04-04 16:23] VITALS: BP 117/71
[2023-04-04] MEDS: Sodium Chloride 0.9% 1,000 ML IV SCH (16:24)
[2023-04-05] MEDS: Sodium Chloride 0.9% 1,000 ML IV SCH ×2 (01:35→11:44)
[2023-04-05 04:05] LABS: #Basophils 0.1 thou/uL (0.0-0.2); #Eosinphils 0.1 thou/uL (0.0-0.7); #Monocytes 0.7 thou/uL (0.11-0.59); #Neutrophils 5.2 thou/uL (1.40-6.50); %Basophils 0.6 % (0.0-1.0); %Eosinophils 1.5 % (0.0-10.0); %Lymphocytes 21.6 % (21.0-51.0); %Monocytes 8.7 % (0.0-10.0); Hematocrit 25.8 % (42.0-52.0); Hemoglobin 8.5 g/dL (14.0-18.0); Mean Corpuscular HGB CONC 32.9 g/dL (32.0-36.0); Mean Corpuscular Hemoglobin 30.7 pg (27.0-31.0); Mean Corpuscular Volume 93.1 fl (78.0-98.0); Platelet Count 202 10x3/uL (130-400); RBC Distribution Width 14.7 % (11.5-14.5); Red Blood Cell (RBC) Count 2.77 mill/uL (4.70-6.10); White Blood Cell (WBC) Count 7.8 10x3/uL (4.8-10.8)
[2023-04-05 04:28] LABS: Anion Gap 9 mmol/L (10-20); BUN (Urea Nitrogen) 5 mg/dL (8.9-20.6); Calc. Creatinine Clearance 110 mL/min (70-130); Calcium 7.7 mg/dL (7.8-10.44); Carbon Dioxide 18 mmol/L (22-29); Chloride 113 mmol/L (98-107); Estimated GFR 132; Glucose 111 mg/dL (70-105); Potassium 3.3 mmol/L (3.5-5.1); Sodium 137 mmol/L (136-145)
[2023-04-05] MEDS: Vancomycin HCl 750 MG in Sodium Chloride 0.9% 250 ML 250 ML IVPB SCH ×2 (04:35→17:17)
[2023-04-05] MEDS: Meropenem 1 GM in Sodium Chloride 0.9% 100 ML IVPB SCH ×2 (04:35→11:43)
[2023-04-05] MEDS: Tamsulosin HCl 0.4 MG CAP PO SCH (08:03)
[2023-04-05] MEDS: tiZANidine HCl 4 MG TAB PO PRN (08:03)
[2023-04-05] MEDS: Zonisamide 100 MG CAP PO SCH ×2 (08:03→22:16)
[2023-04-05] MEDS: Mirabegron ER 25 MG ER.TAB PO SCH (08:03)
[2023-04-05] MEDS: Sertraline 100 MG TAB PO SCH (08:04)
[2023-04-05] MEDS: levETIRAcetam 500 MG TAB PO SCH (08:04)
[2023-04-05] MEDS: Famotidine/PF 20 mg/2ml Vial SLOW IVP SCH ×2 (08:04→22:11)
[2023-04-05] MEDS: Divalproex Sodium 250 MG (DR) TAB PO SCH (08:05)
[2023-04-05] MEDS: QUINIDINE PO SCH ×2 (08:05→22:16)
[2023-04-05] MEDS: DEXTROMETHORPHAN PO SCH ×2 (08:05→22:16)
[2023-04-05] MEDS: Polyethylene Glycol 3350 17 GM Packet PER TUBE SCH (08:05)
[2023-04-05 15:44] LABS: Vancomycin, Trough 12.2 ug/mL
[2023-04-05] MEDS ORDERED: Lorazepam 2 MG/ML VIAL SLOW IVP PRN (19:07)
[2023-04-05 19:47] LABS: #Eosinphils 0.2 thou/uL (0.0-0.7); #Monocytes 0.5 thou/uL (0.11-0.59); %Basophils 0.6 % (0.0-1.0); %Eosinophils 3.3 % (0.0-10.0); %Lymphocytes 28.3 % (21.0-51.0); %Monocytes 8.1 % (0.0-10.0); %Neutrophils 59.3 % (42.0-75.0); Hematocrit 31.3 % (42.0-52.0); Hemoglobin 10.5 g/dL (14.0-18.0); Mean Corpuscular HGB CONC 33.5 g/dL (32.0-36.0); Mean Corpuscular Hemoglobin 30.3 pg (27.0-31.0); Mean Corpuscular Volume 90.5 fl (78.0-98.0); Mean Platelet Volume 8.6 fL (7.4-10.4); Platelet Count 225 10x3/uL (130-400); RBC Distribution Width 14.7 % (11.5-14.5); Red Blood Cell (RBC) Count 3.46 mill/uL (4.70-6.10); White Blood Cell (WBC) Count 6.7 10x3/uL (4.8-10.8)
[2023-04-05 20:09] LABS: Anion Gap 12 mmol/L (10-20); BUN (Urea Nitrogen) Less than 4 mg/dL (8.9-20.6); Calc. Creatinine Clearance 97 mL/min (70-130); Calcium 8.5 mg/dL (7.8-10.44); Carbon Dioxide 21 mmol/L (22-29); Chloride 110 mmol/L (98-107); Estimated GFR 127; Glucose 93 mg/dL (70-105); Potassium 3.5 mmol/L (3.5-5.1); Sodium 139 mmol/L (136-145)
[2023-04-05] MEDS: levETIRAcetam 500 MG/5 ML VIAL SLOW IVP SCH (22:13)
[2023-04-06] MEDS: Divalproex Sodium 250 MG (DR) TAB PO SCH (00:33)
[2023-04-06] MEDS: levETIRAcetam 500 MG TAB PO SCH (00:33)
[2023-04-06] MEDS: tiZANidine HCl 4 MG TAB PO PRN ×3 (02:08→21:16)
[2023-04-06] MEDS: Sodium Chloride 0.9% 1,000 ML IV SCH ×2 (02:09→09:03)
[2023-04-06] MEDS: Vancomycin HCl 750 MG in Sodium Chloride 0.9% 250 ML 250 ML IVPB SCH ×2 (04:52→15:32)
[2023-04-06] MEDS: levETIRAcetam 500 MG/5 ML VIAL SLOW IVP SCH ×2 (09:03→21:13)
[2023-04-06] MEDS: Tamsulosin HCl 0.4 MG CAP PO SCH (09:03)
[2023-04-06] MEDS: Sertraline 100 MG TAB PO SCH (09:03)
[2023-04-06] MEDS: Mirabegron ER 25 MG ER.TAB PO SCH (09:04)
[2023-04-06] MEDS: Polyethylene Glycol 3350 17 GM Packet PER TUBE SCH (09:04)
[2023-04-06] MEDS: Famotidine/PF 20 mg/2ml Vial SLOW IVP SCH ×2 (09:04→21:14)
[2023-04-06] MEDS: DEXTROMETHORPHAN PO SCH ×2 (09:05→21:14)
[2023-04-06] MEDS: QUINIDINE PO SCH ×2 (09:05→21:14)
[2023-04-06] MEDS: Zonisamide 100 MG CAP PO SCH ×4 (09:06→21:14)
[2023-04-06 12:11] LABS: #Eosinphils 0.2 thou/uL (0.0-0.7); #Monocytes 0.5 thou/uL (0.11-0.59); #Neutrophils 3.7 thou/uL (1.40-6.50); %Basophils 0.7 % (0.0-1.0); %Eosinophils 3.4 % (0.0-10.0); %Lymphocytes 26.4 % (21.0-51.0); %Monocytes 8.4 % (0.0-10.0); %Neutrophils 60.8 % (42.0-75.0); Hematocrit 31.2 % (42.0-52.0); Hemoglobin 9.6 g/dL (14.0-18.0); Mean Corpuscular HGB CONC 30.8 g/dL (32.0-36.0); Mean Corpuscular Hemoglobin 30.6 pg (27.0-31.0); Mean Platelet Volume 9.1 fL (7.4-10.4); Platelet Count 216 10x3/uL (130-400); RBC Distribution Width 14.6 % (11.5-14.5); Red Blood Cell (RBC) Count 3.14 mill/uL (4.70-6.10); White Blood Cell (WBC) Count 6.1 10x3/uL (4.8-10.8)
[2023-04-06 12:17] LABS: Mean Corpuscular Volume 99.4 fl (78.0-98.0)
[2023-04-06 12:21] LABS: Bacteria/HPF 1+ HPF (None Seen); Bilirubin Negative (Negative); Blood, Urine 2+ (Negative); Clarity Clear (Clear); Glucose, Urine (Dipstick) Normal (Negative); Ketone, Urine Negative (Negative); Leukocyte 75 Leu/uL (Negative); Nitrite Negative (Negative); Protein, Urine (Dipstick) Negative (Neg-Trace); RBC/HPF 21-50 HPF (0-3); Specific Gravity, Urine 1.003 (1.002-1.036); Squamous Epithelial None Seen HPF (0-3); Urobilinogen Normal mg/dL (Less than 2)
[2023-04-06 12:33] LABS: Anion Gap 10 mmol/L (10-20); BUN (Urea Nitrogen) Less than 4 mg/dL (8.9-20.6); Calc. Creatinine Clearance 113 mL/min (70-130); Calcium 8.4 mg/dL (7.8-10.44); Carbon Dioxide 22 mmol/L (22-29); Chloride 108 mmol/L (98-107); Estimated GFR 130; Glucose 84 mg/dL (70-105); Potassium 4.4 mmol/L (3.5-5.1); Sodium 136 mmol/L (136-145)
[2023-04-06 16:44] LABS: Vancomycin, Trough 16.7 ug/mL
[2023-04-07] MEDS: Sodium Chloride 0.9% 1,000 ML IV SCH ×3 (02:57→15:25)
[2023-04-07] MEDS ORDERED: Vancomycin HCl 500 MG in Sodium Chloride 0.9% 100 ML IVPB SCH ×2 (04:00→17:00)
[2023-04-07] MEDS ORDERED: Sodium Chloride 0.9% 0 ML ONE (05:20)
[2023-04-07 05:52] LABS: #Eosinphils 0.4 thou/uL (0.0-0.7); #Monocytes 0.5 thou/uL (0.11-0.59); #Neutrophils 3.7 thou/uL (1.40-6.50); %Basophils 0.3 % (0.0-1.0); %Eosinophils 6.1 % (0.0-10.0); %Lymphocytes 23.2 % (21.0-51.0); %Monocytes 8.4 % (0.0-10.0); %Neutrophils 61.5 % (42.0-75.0); Hematocrit 26.6 % (42.0-52.0); Hemoglobin 9.1 g/dL (14.0-18.0); Mean Corpuscular HGB CONC 34.2 g/dL (32.0-36.0); Mean Corpuscular Hemoglobin 30.7 pg (27.0-31.0); Mean Platelet Volume 8.7 fL (7.4-10.4); Platelet Count 237 10x3/uL (130-400); RBC Distribution Width 14.3 % (11.5-14.5); Red Blood Cell (RBC) Count 2.96 mill/uL (4.70-6.10); White Blood Cell (WBC) Count 5.9 10x3/uL (4.8-10.8)
[2023-04-07 05:56] LABS: Mean Corpuscular Volume 89.9 fl (78.0-98.0)
[2023-04-07 06:13] LABS: Anion Gap 11 mmol/L (10-20); BUN (Urea Nitrogen) Less than 4 mg/dL (8.9-20.6); Calc. Creatinine Clearance 112 mL/min (70-130); Calcium 8.5 mg/dL (7.8-10.44); Carbon Dioxide 20 mmol/L (22-29); Chloride 112 mmol/L (98-107); Estimated GFR 130; Glucose 123 mg/dL (70-105); Potassium 4.1 mmol/L (3.5-5.1); Sodium 139 mmol/L (136-145)
[2023-04-07] MEDS: Zonisamide 100 MG CAP PO SCH (08:55)
[2023-04-07] MEDS: Famotidine/PF 20 mg/2ml Vial SLOW IVP SCH (08:55)
[2023-04-07] MEDS: Polyethylene Glycol 3350 17 GM Packet PER TUBE SCH (08:55)
[2023-04-07] MEDS: levETIRAcetam 500 MG/5 ML VIAL SLOW IVP SCH (08:55)
[2023-04-07] MEDS: Tamsulosin HCl 0.4 MG CAP PO SCH (08:55)
[2023-04-07] MEDS: DEXTROMETHORPHAN PO SCH (08:56)
[2023-04-07] MEDS: Sertraline 100 MG TAB PO SCH (08:56)
[2023-04-07] MEDS: QUINIDINE PO SCH (08:56)
[2023-04-07] MEDS: tiZANidine HCl 4 MG TAB PO PRN (09:00)
[2023-04-07 15:23] LABS: Vancomycin, Trough 14.2 ug/mL
[2023-04-07 16:40] VITALS: TEMP 98.2
[2023-04-07] MEDS ORDERED: Famotidine 20 MG TAB PER TUBE SCH (21:00)
== END 2023-04-07 18:31 | disposition home or self-care (01) | DRG 908 ==
LOC: ERS 11:57 → T4-B 16:44 → T4-A 04-02 03:50 → IMCU/EMU 04-03 15:52
PROVIDERS: ADMIT Internal Medicine; ATTEND Internal Medicine
PROC: 0T9030Z Drainage of Right Kidney with Drainage Device, Percutaneous Approach (ICD-10-PCS; 2023-04-01)
PROC: 0TP9XDZ Removal of Intraluminal Device from Ureter, External Approach (ICD-10-PCS; 2023-04-01)
PROC: 0T763DZ Dilation of Right Ureter with Intraluminal Device, Percutaneous Approach (ICD-10-PCS; 2023-04-01)
PROC: 30233N1 Transfusion of Nonautologous Red Blood Cells into Peripheral Vein, Percutaneous Approach (ICD-10-PCS; 2023-04-03)
PROC: 0T778DZ Dilation of Left Ureter with Intraluminal Device, Via Natural or Artificial Opening Endoscopic (ICD-10-PCS; principal; 2023-04-04)
PROC: 0W3R8ZZ Control Bleeding in Genitourinary Tract, Via Natural or Artificial Opening Endoscopic (ICD-10-PCS; 2023-04-04)
PROC: BT1D1ZZ Fluoroscopy of Right Kidney, Ureter and Bladder using Low Osmolar Contrast (ICD-10-PCS; 2023-04-04)
PROC: 0TC18ZZ Extirpation of Matter from Left Kidney, Via Natural or Artificial Opening Endoscopic (ICD-10-PCS; 2023-04-04)
PROC: 0TC08ZZ Extirpation of Matter from Right Kidney, Via Natural or Artificial Opening Endoscopic (ICD-10-PCS; 2023-04-04)
PROC: 30233J1 Transfusion of Nonautologous Serum Albumin into Peripheral Vein, Percutaneous Approach (ICD-10-PCS; 2023-04-04)
PROC: 0TCB8ZZ Extirpation of Matter from Bladder, Via Natural or Artificial Opening Endoscopic (ICD-10-PCS; 2023-04-04)
PROC: 4A00X4Z Measurement of Central Nervous Electrical Activity, External Approach (ICD-10-PCS; 2023-04-07)
DX: N99.820 Postprocedural hemorrhage of a genitourinary system organ or structure following a genitourinary system procedure (principal); E87.20 Acidosis, unspecified; N39.0 Urinary tract infection, site not specified; G40.919 Epilepsy, unspecified, intractable, without status epilepticus; T83.028A Displacement of other urinary catheter, initial encounter; N20.0 Calculus of kidney; K59.09 Other constipation; G93.89 Other specified disorders of brain; G80.9 Cerebral palsy, unspecified; Z96.643 Presence of artificial hip joint, bilateral; E87.6 Hypokalemia; D64.9 Anemia, unspecified; Z96.0 Presence of urogenital implants; Z79.899 Other long term (current) drug therapy; Z98.890 Other specified postprocedural states; Y84.6 Urinary catheterization as the cause of abnormal reaction of the patient, or of later complication, without mention of misadventure at the time of the procedure; M79.81 Nontraumatic hematoma of soft tissue; Y83.8 Other surgical procedures as the cause of abnormal reaction of the patient, or of later complication, without mention of misadventure at the time of the procedure
CPT/HCPCS: 36415; 36416; 36430; 49020; 71045; 74018; 74178; 74420; 77002; 80048; 80053; 80164; 80177; 80202; 81001; 83605; 83615; 85025; 85049; 85060; 85300; 85362; 85379; 85384; 85610; 85730; 86850; 86900; 86901; 87040; 87070; 87077; 87086; 87149; 87205; 89051; 93005; 93010; 95711; 95819; 96365; C1747; C1769; C2617; J1100; J1200; J1953; J2060; J2185; J2250; J2272; J2405; J2704; J3010; J3370; J3370-JW; J3480; J3490; J7050; P9016; P9045; Q0162; Q9967; S0028

== ENCOUNTER 2023-06-08 17:40 | Observation (INO) | payer MEDICAID, MEDICARE ==
[2023-06-08 20:59] LABS: #Eosinphils 0.2 thou/uL (0.0-0.7); #Monocytes 0.4 thou/uL (0.11-0.59); #Neutrophils 2.9 thou/uL (1.40-6.50); %Basophils 0.4 % (0.0-1.0); %Eosinophils 3.3 % (0.0-10.0); %Lymphocytes 33.8 % (21.0-51.0); %Neutrophils 55.1 % (42.0-75.0); Hematocrit 39.8 % (42.0-52.0); Hemoglobin 13.3 g/dL (14.0-18.0); Mean Corpuscular HGB CONC 33.4 g/dL (32.0-36.0); Mean Corpuscular Volume 89.6 fl (78.0-98.0); Mean Platelet Volume 9.7 fL (7.4-10.4); RBC Distribution Width 13.7 % (11.5-14.5); Red Blood Cell (RBC) Count 4.44 mill/uL (4.70-6.10); White Blood Cell (WBC) Count 5.2 10x3/uL (4.8-10.8)
[2023-06-08 21:01] LABS: Platelet Count 135 10x3/uL (130-400)
[2023-06-08] MEDS ORDERED: Vancomycin 1 GM/200 ML (FROZEN) BAG ONE (21:12)
[2023-06-08] MEDS ORDERED: Cefepime 2 GM VIAL ONE (21:12)
[2023-06-08] MEDS ORDERED: Sodium Chloride 0.9% 100 ML ONE ×2 (21:12→21:15)
[2023-06-08 21:14] LABS: ALT (SGPT) 11 U/L (8-55); AST (SGOT) 15 U/L (5-34); Albumin 4.2 g/dL (3.5-5.0); Alkaline Phosphatase 67 U/L (40-110); Anion Gap 13 mmol/L (10-20); BUN (Urea Nitrogen) 11 mg/dL (8.9-20.6); Bilirubin, Total 0.3 mg/dL (0.2-1.2); Calc. Creatinine Clearance 0 mL/min (70-130); Calcium 9.2 mg/dL (7.8-10.44); Carbon Dioxide 20 mmol/L (22-29); Chloride 109 mmol/L (98-107); Estimated GFR 119; Globulin 2.5 g/dL (2.4-3.5); Glucose 107 mg/dL (70-105); Potassium 3.9 mmol/L (3.5-5.1); Protein, Total 6.7 g/dL (6.0-8.3); Sodium 138 mmol/L (136-145)
[2023-06-08] MEDS ORDERED: Oxybutynin 5 MG TAB PO PRN (22:26)
[2023-06-08] MEDS ORDERED: Fluticasone Propionate Nasal Spray 16 gm Bottle NASAL PRN (22:26)
[2023-06-08] MEDS ORDERED: Docusate 100 MG CAP PO PRN (22:26)
[2023-06-08] MEDS ORDERED: Acetaminophen 325 MG TAB PO PRN (22:28)
[2023-06-08] MEDS ORDERED: Ondansetron PF 4 MG/2 ML Vial IVP PRN (22:28)
[2023-06-08] MEDS ORDERED: Pharmacy to Dose : VANC/ABX'S IVPB PRN (22:32)
[2023-06-08] MEDS ORDERED: Melatonin 3 MG TAB PO PRN (22:48)
[2023-06-08 23:33] VITALS: BMI 18.5
[2023-06-09] MEDS ORDERED: Divalproex Sodium 250 MG (DR) TAB ONE (03:45)
[2023-06-09] MEDS ORDERED: levETIRAcetam 500 MG TAB ONE (03:46)
[2023-06-09] MEDS ORDERED: Loratadine 10 MG TAB PO PRN (04:05)
[2023-06-09] MEDS ORDERED: LORazepam 2 MG/ML SYR.(CARPUJECT) IVP PRN (04:09)
[2023-06-09 05:30] LABS: #Eosinphils 0.3 thou/uL (0.0-0.7); #Monocytes 0.4 thou/uL (0.11-0.59); #Neutrophils 1.7 thou/uL (1.40-6.50); %Basophils 0.7 % (0.0-1.0); %Eosinophils 5.7 % (0.0-10.0); %Monocytes 7.9 % (0.0-10.0); %Neutrophils 39.2 % (42.0-75.0); Hematocrit 43.2 % (42.0-52.0); Hemoglobin 14.6 g/dL (14.0-18.0); Mean Corpuscular HGB CONC 33.8 g/dL (32.0-36.0); Mean Corpuscular Hemoglobin 30.2 pg (27.0-31.0); Mean Corpuscular Volume 89.4 fl (78.0-98.0); Mean Platelet Volume 9.8 fL (7.4-10.4); Platelet Count 137 10x3/uL (130-400); RBC Distribution Width 13.7 % (11.5-14.5); Red Blood Cell (RBC) Count 4.83 mill/uL (4.70-6.10); White Blood Cell (WBC) Count 4.4 10x3/uL (4.8-10.8)
[2023-06-09 05:44] LABS: Anion Gap 13 mmol/L (10-20); BUN (Urea Nitrogen) 9 mg/dL (8.9-20.6); Calc. Creatinine Clearance 87 mL/min (70-130); Calcium 9.3 mg/dL (7.8-10.44); Carbon Dioxide 23 mmol/L (22-29); Chloride 106 mmol/L (98-107); Estimated GFR 120; Glucose 103 mg/dL (70-105); Potassium 4.4 mmol/L (3.5-5.1); Sodium 138 mmol/L (136-145)
[2023-06-09] MEDS: Vancomycin HCl 750 MG in Sodium Chloride 0.9% 250 ML 250 ML IVPB SCH (08:41)
[2023-06-09] MEDS: Divalproex Sodium 250 MG (DR) TAB PO SCH (08:42)
[2023-06-09] MEDS: Sertraline 100 MG TAB PO SCH (08:42)
[2023-06-09] MEDS: Zonisamide 100 MG CAP PO SCH (08:42)
[2023-06-09] MEDS: levETIRAcetam 500 MG TAB PO SCH (08:43)
[2023-06-09] MEDS: Heparin 5,000 UNITS/ML VIAL SC SCH (08:43)
[2023-06-09] MEDS ORDERED: tiZANidine HCl 4 MG TAB PO SCH (09:00)
[2023-06-09] MEDS ORDERED: Divalproex Sodium 250 MG (DR) TAB PO SCH (09:00)
[2023-06-09] MEDS ORDERED: Tamsulosin HCl 0.4 MG CAP PO SCH (09:00)
[2023-06-09] MEDS ORDERED: Vancomycin 1 GM in Sodium Chloride 0.9% 250 ML 250 ML IVPB SCH (09:00)
[2023-06-09] MEDS ORDERED: Fluconazole 100 MG TAB PO SCH (09:00)
[2023-06-09] MEDS ORDERED: DEXTROMETHORPHAN HBR PO SCH ×2 (09:30→21:00)
[2023-06-09] MEDS ORDERED: QUINIDINE PO SCH ×2 (09:30→21:00)
[2023-06-09 11:24] VITALS: BP 125/83; TEMP 98.2
[2023-06-09] MEDS: tiZANidine HCl 4 MG TAB PO PRN (17:20)
[2023-06-09] MEDS ORDERED: Divalproex Sodium DR 500 MG TAB PO SCH (17:45)
[2023-06-10] MEDS ORDERED: Divalproex Sodium DR 500 MG TAB PO SCH (09:00)
== END 2023-06-09 19:06 | disposition home or self-care (01) ==
LOC: ERS 17:40 → ERHOLD 22:29 → T4-A 06-09 08:09
PROVIDERS: ADMIT Student in an Organized Health Care Education/Training Program; ATTEND Internal Medicine
DX: L03.116 Cellulitis of left lower limb (principal); G80.9 Cerebral palsy, unspecified; G40.909 Epilepsy, unspecified, not intractable, without status epilepticus; D53.9 Nutritional anemia, unspecified; K59.09 Other constipation; Z79.51 Long term (current) use of inhaled steroids; Z79.899 Other long term (current) drug therapy; Z96.653 Presence of artificial knee joint, bilateral; Z98.890 Other specified postprocedural states
CPT/HCPCS: 80048; 80053; 83605; 85025 ×2; 87040; 96365; 96372; 96375; 96376; 99284; G0378 ×3; J3370; 36415; J0692; J1644; J3490; J7050

== ENCOUNTER 2023-06-23 09:00 | Outpatient (CLI) | payer MEDICARE | END 2023-06-23 09:01 | disposition home or self-care (01) | LOC: CT 09:00 | PROVIDERS: ATTEND Urology | DX: N20.0 Calculus of kidney (principal); Z87.448 Personal history of other diseases of urinary system; Z98.890 Other specified postprocedural states | CPT/HCPCS: 74178 ==

== ENCOUNTER 2024-03-11 09:46 | Outpatient (CLI) | payer MEDICARE, MEDICAID | END 2024-03-11 09:47 | disposition home or self-care (01) | LOC: CT 09:46 | PROVIDERS: ATTEND Urology | DX: M62.461 Contracture of muscle, right lower leg (principal); K59.00 Constipation, unspecified; N20.0 Calculus of kidney; Z98.890 Other specified postprocedural states | CPT/HCPCS: 74176 ==

== ENCOUNTER 2024-03-23 13:57 | Emergency (ER) | payer MEDICARE, MEDICAID ==
[2024-03-23 15:41] LABS: ALT (SGPT) 17 U/L (8-55); AST (SGOT) 31 U/L (5-34); Albumin 3.3 g/dL (3.5-5.0); Alkaline Phosphatase 72 U/L (40-110); Anion Gap 14 mmol/L (10-20); BUN (Urea Nitrogen) 10 mg/dL (8.9-20.6); Bilirubin, Total 0.3 mg/dL (0.2-1.2); Calc. Creatinine Clearance 0 mL/min (70-130); Calcium 8.9 mg/dL (7.8-10.44); Carbon Dioxide 18 mmol/L (22-29); Chloride 112 mmol/L (98-107); Estimated GFR 122; Globulin 3.3 g/dL (2.4-3.5); Glucose 108 mg/dL (70-105); Protein, Total 6.6 g/dL (6.0-8.3); Sodium 140 mmol/L (136-145)
[2024-03-23] MEDS ORDERED: Dexamethasone 10 MG/ML VIAL ONE (16:19)
[2024-03-23 16:22] LABS: #Basophils Less than 0.03 10x3/uL (0.0-0.2); %Basophils 0.2 % (0.0-1.0); %Eosinophils 1.2 % (0.0-10.0); %Lymphocytes 14.9 % (21.0-51.0); %Monocytes 11.9 % (0.0-10.0); %Neutrophils 71.1 % (42.0-75.0); Hematocrit 39.4 % (42.0-52.0); Mean Corpuscular HGB CONC 35.5 g/dL (32.0-36.0); Mean Corpuscular Hemoglobin 32.4 pg (27.0-31.0); Mean Corpuscular Volume 91.2 fL (78.0-98.0); Mean Platelet Volume 9.2 fL (7.4-10.4); Platelet Count 90 10x3/uL (130-400); RBC Distribution Width 12.6 % (11.5-14.5); Red Blood Cell (RBC) Count 4.32 mill/uL (4.70-6.10)
[2024-03-23 16:26] LABS: Burr Cells SLIGHT = 2-5 cells HPF (0-1); Ovalocytes SLIGHT = 2-5 cells HPF (0-1); Platelet Adequacy Comment Platelets Decreased; Polychromasia SLIGHT = 2-3 cells HPF (0-2)
== END 2024-03-23 17:17 | disposition home or self-care (01) ==
LOC: ERS 13:57
DX: J02.0 Streptococcal pharyngitis (principal); R09.81 Nasal congestion; Z86.69 Personal history of other diseases of the nervous system and sense organs; Z79.899 Other long term (current) drug therapy
CPT/HCPCS: 36415; 71045; 71250; 80053; 83605; 85025; 87428; 96372; J1100